=== PATIENT | male | born 1935 | race Caucasian/White ===

== ENCOUNTER 2017-07-30 06:28 | Emergency (ER) | payer OTHER ==
--- OUTSIDE RECORDS SUMMARY | 2017-07-30 06:30 | XMS REPORT | Clinical Summary ---
:[address] [facility] Hospitalist Address [address] [place] [address] Care Team Providers Name Role Phone Daniel Arguelles MD Primary Care Provider Allergies No Known Allergies Current Medications Prescription Sig. Disp. Refills Start Date End Date Status amLODIPine (NORVASC) 10 MG tablet 01/19/2016 Active calcitriol (ROCALTROL) 0.25 MCG capsule 01/19/2016 Active clopidogrel (PLAVIX) 75 mg tablet 12/20/2015 Active hydrALAZINE (APRESOLINE) 25 MG tablet 03/05/2016 Active lisinopril (PRINIVIL,ZESTRIL) 20 MG 03/05/2016 Active tablet hydrALAZINE (APRESOLINE) 100 MG tablet 02/18/2016 Active metoprolol tartrate (LOPRESSOR) 100 MG 02/20/2016 Active tablet RENVELA 800 mg tablet 02/16/2016 Active Active Problems Problem Noted Date End stage renal disease 03/21/2016 Social History Tobacco Use Types Packs/Day Years Used Date Never Smoker Sex Assigned at Date Recorded Not on file Last Filed Vital Signs Not on file Plan of Treatment Health Maintenance Due Date Last Done Comments ZOSTER VACCINE 1996 PNEUMOCOCCAL POLYSACCHARIDE VACCINE AGE 65 AND OVER 2001 PNEUMOCOCCAL-13 2001 INFLUENZA VACCINE 11/27/2016 Results Not on fileafter 07/29/2016 Insurance Payer Benefit Plan / Group Subscriber ID Type Phone Address AETNA AETNA PPO OPEN CHOICE xxxxxxxxx PPO MEDICARE MEDICARE PART A AND B xxxxxxxxxx Medicare [place], [place] [phone] [place], [place] [phone]
--- OUTSIDE RECORDS SUMMARY | 2017-07-30 06:30 | XMS REPORT ---
:1935 [facility] Address [address] [place] [address] [address]. [address] [place] [address] Care Team Providers Name Role Phone WING OVIEDO Unavailable Unavailable Problems This patient has no known problems. Allergies, Adverse Reactions, Alerts This patient has no known allergies or adverse reactions. Medications This patient has no known medications. Results Test Description Test Time Test Comments Text Results Atomic Results Result Comments TISSUE EXAM 2016-10-08 11:42:00 Surgical Pathology Report Case: [id number] Authorizing Provider: Erickson Oviedo MD Collected: 10/04/2016 0829 Ordering Location: [facility] Received: 10/04/2016 1114 PERIOPERATIVE SERVICES Pathologist: Tim Banres MD Specimen: Plaque, LEFT CAROTID ARTERY PLAQUE ARTERY, LEFT CAROTID, ATHERECTOMY:CALCIFIC ATHEROSCLEROTIC PLAQUE WITH METAPLASTIC OSSIFICATION 13797; 517[address]Cxebcio stenosisLeft carotid artery plaqueReceived in saline labeled "plaque", description "left carotid artery plaque" is a 3.5 cm in length x 1.0 cm in diameter, teresa-white to yellow-pino, cylindrical, previously incised portion of fibrous tissue. Sectioning reveals focal calcification. Crepe Maker sections are submitted in cassette A1 for decalcification. DB/ewPerformed CBC W/PLT COUNT & AUTO DIFFERENTIAL 2016-10-05 07:33:00 Test Item Value Reference Range Comments WHITE BLOOD CELL COUNT (BEAKER) (test zyqg=138) 9.4 K/ L 4.0-10.0 RED BLOOD CELL COUNT (BEAKER) (test aedg=608) 3.53 M/ L 4.20-5.80 HEMOGLOBIN (BEAKER) (test ccuh=671) 10.8 GM/DL 13.0-16.8 HEMATOCRIT (BEAKER) (test rfkb=788) 34.7 % 40.0-50.0 MEAN CORPUSCULAR VOLUME (BEAKER) (test qdvn=001) 98.4 fL 82.0-98.0 MEAN CORPUSCULAR HEMOGLOBIN (BEAKER) (test whju=993) 30.5 pg 27.0-33.0 MEAN CORPUSCULAR HEMOGLOBIN CONC (BEAKER) (test qzld=992) 31.0 GM/DL 32.0- 36.0 RED CELL DISTRIBUTION WIDTH (BEAKER) (test pfoa=328) 12.9 % 10.3-14.2 PLATELET COUNT (BEAKER) (test xqdk=943) 175 K/CU MM 150-430 MEAN PLATELET VOLUME (BEAKER) (test mbgm=319) 8.3 fL 6.5-10.5 NUCLEATED RED BLOOD CELLS (BEAKER) (test bemo=231) 0 /100 WBC 0-0 NEUTROPHILS RELATIVE PERCENT (BEAKER) (test fbbz=392) 68 % LYMPHOCYTES RELATIVE PERCENT (BEAKER) (test fjgf=611) 11 % MONOCYTES RELATIVE PERCENT (BEAKER) (test yuto=643) 10 % EOSINOPHILS RELATIVE PERCENT (BEAKER) (test oijq=738) 11 % BASOPHILS RELATIVE PERCENT (BEAKER) (test znou=655) 0 % NEUTROPHILS ABSOLUTE COUNT (BEAKER) (test afxw=218) 6.33 K/ L 1.80-8.00 LYMPHOCYTES ABSOLUTE COUNT (BEAKER) (test hcbs=991) 1.03 K/ L 1.48-4.50 MONOCYTES ABSOLUTE COUNT (BEAKER) (test yfys=801) 0.92 K/ L 0.00-1.30 EOSINOPHILS ABSOLUTE COUNT (BEAKER) (test arka=553) 1.07 K/ L 0.00-0.50 BASOPHILS ABSOLUTE COUNT (BEAKER) (test fuhr=552) 0.01 K/ L 0.00-0.20 0.00BASI METABOLIC [id number] 06:48:00 Test Item Value Reference Range Comments SODIUM (BEAKER) (test 138 meq/L 136-145 lcxb=090) POTASSIUM (BEAKER) (test 3.5 meq/L 3.5-5.1 zskg=410) CHLORIDE (BEAKER) (test 105 meq/L 98-107 vomv=849) CO2 (BEAKER) (test 21 meq/L 22-29 goxu=568) BLOOD UREA NITROGEN 39 mg/dL 7-21 (BEAKER) (test gfmv=220) CREATININE (BEAKER) (test 5.59 mg/dL 0.57-1.25 mtda=858) GLUCOSE RANDOM (BEAKER) 93 mg/dL 70-105 (test nsdl=368) CALCIUM (BEAKER) (test 8.6 mg/dL 8.4-10.2 khgl=225) EGFR (BEAKER) (test 10 mL/min/1.73 sq m ESTIMATED GFR IS NOT dusu=4972) ACCURATE CREATININE CLEARANCE IN PREDICTING GLOMERULAR FILTRATION RATE. ESTIMATED GFR IS NOT APPLICABLE FOR DIALYSIS PATIENTS. PLATELET AGGREGATION: FUNCTION [id number] 14:12:00 Test Item Value Reference Range Comments WEAK ADP RESULT(BEAKER) (test 82 % 60-91 vipa=3928) PLATELET FUNCTION SCREEN 60-100% indicates normal INTERP (BEAKER) (test platelet function lhou=6721) [id number] (BEAKER) Chuckie Scott MD (electronic (test lzkd=6813) signature) PLATELET COUNT AGG (BEAKER) 207 K/CU MM 150-430 (test jkyh=3878) HGB/HCT (H&H) - STAT [id number] 10:02:00 Test Item Value Reference Range Comments HEMOGLOBIN (BEAKER) (test ywoq=025) 11.2 g/dL 13.0-16.8 HEMATOCRIT (BEAKER) (test qnws=202) 33.0 % 40.0-50.0 GLUCOSE-STAT [id number] 10:02:00 Test Item Value Reference Range Comments GLUCOSE RANDOM (BEAKER) (test yrea=580) 120 mg/dL 70-110 CALCIUM, [id number] 10:02:00 Test Item Value Reference Range Comments CALCIUM IONIZED (BEAKER) (test qwkt=209) 1.10 mmol/L 1.12-1.27 PH, BLOOD (BEAKER) (test vmnm=9946) 7.40 POTASSIUM-STAT [id number] 10:01:00 Test Item Value Reference Range Comments POTASSIUM (BEAKER) (test mpaw=299) 3.6 meq/L 3.6-5.5 POTASSIUM-STAT [id number] 07:30:00 Test Item Value Reference Range Comments POTASSIUM (BEAKER) (test jzmp=873) 3.3 meq/L 3.6-5.5 [id number] 06:44:00 Test Item Value Reference Range Comments PARTIAL THROMBOPLASTIN TIME (BEAKER) (test 28.8 seconds 22.5-36.0 eecw=430) PROTHROMBIN TIME/[id number] 06:43:00 Test Item Value Reference Range Comments PROTIME (BEAKER) (test mlql=599) 13.4 seconds 11.7-14.7 INR (BEAKER) (test qaro=066) 1.0 <=5.9 RECOMMENDED COUMADIN/WARFARIN INR THERAPY RANGESSTANDARD DOSE: 2.0 - 3.0 Includes: PROPHYLAXIS forvenous thrombosis, systemic embolization; TREATMENT for venous thrombosis and/or pulmonary embolus.HIGH RISK: Target INR is 2.5-3.5 for patients with mechanical heart valves.BASIC METABOLIC [id number] 11:44: 00 Test Item Value Reference Range Comments SODIUM (BEAKER) (test 140 meq/L 136-145 uwaa=388) POTASSIUM (BEAKER) (test 3.6 meq/L 3.5-5.1 sozi=505) CHLORIDE (BEAKER) (test 99 meq/L 98-107 wtsv=287) CO2 (BEAKER) (test 26 meq/L 22-29 tsck=188) BLOOD UREA NITROGEN 35 mg/dL 7-21 (BEAKER) (test vgvr=986) CREATININE (BEAKER) (test 5.10 mg/dL 0.57-1.25 gqlf=355) GLUCOSE RANDOM (BEAKER) 118 mg/dL 70-105 (test eidi=611) CALCIUM (BEAKER) (test 9.4 mg/dL 8.4-10.2 qrij=021) EGFR (BEAKER) (test 11 mL/min/1.73 sq m ESTIMATED GFR IS NOT qmkg=6911) ACCURATE CREATININE CLEARANCE IN PREDICTING GLOMERULAR FILTRATION RATE. ESTIMATED GFR IS NOT APPLICABLE FOR DIALYSIS PATIENTS. PROTHROMBIN TIME/[id number] 11:23:00 Test Item Value Reference Range Comments PROTIME (BEAKER) (test yaeb=539) 13.9 seconds 11.7-14.7 INR (BEAKER) (test thli=453) 1.1 <=5.9 RECOMMENDED COUMADIN/WARFARIN INR THERAPY RANGESSTANDARD DOSE: 2.0 - 3.0 Includes: PROPHYLAXIS forvenous thrombosis, systemic embolization; TREATMENT for venous thrombosis and/or pulmonary embolus.HIGH RISK: Target INR is 2.5-3.5 for patients with mechanical heart valves.CBC W/PLT COUNT & AUTO [id number] 11:21:00 Test Item Value Reference Range Comments WHITE BLOOD CELL COUNT (BEAKER) (test resl=705) 9.2 K/ L 4.0-10.0 RED BLOOD CELL COUNT (BEAKER) (test ozcu=041) 4.08 M/ L 4.20-5.80 HEMOGLOBIN (BEAKER) (test lswu=113) 13.0 GM/DL 13.0-16.8 HEMATOCRIT (BEAKER) (test hikx=976) 39.8 % 40.0-50.0 MEAN CORPUSCULAR VOLUME (BEAKER) (test fmna=082) 97.7 fL 82.0-98.0 MEAN CORPUSCULAR HEMOGLOBIN (BEAKER) (test 31.9 pg 27.0-33.0 yboh=074) MEAN CORPUSCULAR HEMOGLOBIN CONC (BEAKER) (test 32.6 GM/DL 32.0-36.0 kmyd=586) RED CELL DISTRIBUTION WIDTH (BEAKER) (test 14.6 % 10.3-14.2 axwh=794) PLATELET COUNT (BEAKER) (test jvgk=299) 204 K/CU MM 150-430 MEAN PLATELET VOLUME (BEAKER) (test ismx=556) 7.9 fL 6.5-10.5 NUCLEATED RED BLOOD CELLS (BEAKER) (test 0 /100 WBC 0-0 nuqf=678) NEUTROPHILS RELATIVE PERCENT (BEAKER) (test 69 % vjxb=990) LYMPHOCYTES RELATIVE PERCENT (BEAKER) (test 13 % zuur=310) MONOCYTES RELATIVE PERCENT (BEAKER) (test 7 % dkeq=169) EOSINOPHILS RELATIVE PERCENT (BEAKER) (test 10 % tfzp=045) BASOPHILS RELATIVE PERCENT (BEAKER) (test 1 % wuep=675) NEUTROPHILS ABSOLUTE COUNT (BEAKER) (test 6.36 K/ L 1.80-8.00 mini=154) LYMPHOCYTES ABSOLUTE COUNT (BEAKER) (test 1.24 K/ L 1.48-4.50 paws=103) MONOCYTES ABSOLUTE COUNT (BEAKER) (test 0.65 K/ L 0.00-1.30 ssiv=812) EOSINOPHILS ABSOLUTE COUNT (BEAKER) (test 0.90 K/ L 0.00-0.50 xnpm=054) BASOPHILS ABSOLUTE COUNT (BEAKER) (test 0.07 K/ L 0.00-0.20 berc=500) 0.00
--- OUTSIDE RECORDS SUMMARY | 2017-07-30 06:30 | XMS REPORT | Clinical Summary ---
:1935 Author Organization [facility] Address [address] [place] [address] Phone Care Team Providers Name Role Phone Unavailable Primary Care Provider Unavailable Allergies Active Allergy Reactions Severity Noted Date Comments Iodine And Iodide Containing Products 10/02/2016 Current Medications Prescription Sig. Disp. Refills Start Date End Date Status clopidogrel (PLAVIX) 75 Take 75 mg by mouth Active mg tablet daily. aspirin 81 MG EC tablet Take 81 mg by mouth Active daily. hydrALAZINE (APRESOLINE) Take 25 mg by mouth Active 25 MG tablet as needed. metoprolol (LOPRESSOR) Take 100 mg by Active 100 MG tablet mouth as needed. sevelamer (RENVELA) 800 Take 1,600 mg by Active mg tablet mouth 3 (three) times daily with meals. calcium carbonate (TUMS Take 1 tablet by Active ULTRA) 400 mg (1,000 mg) mouth 3 (three) Chew times daily. cholecalciferol, vitamin Take 50,000 Units Active D3, 50,000 unit Tab by mouth once a week. Active Problems Problem Noted Date ESRD (end stage renal disease) (HCC) 10/05/2016 History of hypertension 10/05/2016 Carotid artery stenosis 10/04/2016 Encounters Date Type Specialty Care Team Description 10/04/2016 - Hospital Encounter Cardiology Erickson Oviedo Stenosis of left 10/05/2016 MD Hebert carotid artery (Primary Dx) 10/04/2016 Anesthesia Event Nuha Lr MD 10/04/2016 Procedure Pass 10/04/2016 Surgery Erickson Oviedo ENDARTERECTOMY,KRISTINE Ambrosio MD ID 10/02/2016 Hospital Encounter Erickson Oviedo MD 10/02/2016 Office Visit Cardiology Erickson Oviedo Stenosis of left MD Hebert carotid artery (Primary Dx);Renal failure 10/02/2016 Orders Only Cardiology Erickson Oviedo Stenosis of left MD Hebert carotid artery 10/02/2016 Orders Only General Internal Medicine after 07/29/2016 Social History Tobacco Use Types Packs/Day Years Used Date Current Every Day Smoker Smokeless Tobacco: Never Used Alcohol Use Drinks/Week oz/Week Comments No Sex Assigned at Date Recorded Not on file Last Filed Vital Signs Vital Sign Reading Time Taken Blood Pressure 130/48 10/05/2016 7:16 AM CDT Pulse 75 10/05/2016 7:16 AM CDT Temperature 36.5 C (97.7 F) 10/05/2016 7:16 AM CDT Respiratory Rate 20 10/05/2016 7:16 AM CDT Oxygen Saturation 96% 10/05/2016 7:16 AM CDT Inhaled Oxygen Concentration - - Weight 51.1 kg (112 lb 11.2 oz) 10/05/2016 7:16 AM CDT Height 157.5 cm (5' 2") 10/04/2016 5:40 AM CDT Body Mass Index 20.61 10/05/2016 7:16 AM CDT Plan of Treatment Health Maintenance Due Date Last Done Comments INFLUENZA VACCINE 01/27/2017 Implants Implanted Type Area Inventory Specialist Device Expiration Model / Identifier Date Serial / Lot Grft Hemshld Dbl Pepe 0.3x3.0in [id number] - [id number] Graft/P Left: GETINGE 03/28/2021 [id number] / Implanted: Qty: 1 on 10/04/2016 by Erickson Oviedo MD [facility] Arterial IND: MAQUET:CV [id number] / [id number] Procedures Procedure Name Priority Date/Time Associated Diagnosis Comments ENDARTERECTOMY,CAROTID 10/04/2016 7:30 AM CDT CAROTID STENOSIS after 07/29/2016 Results RHYTHM STRIP - SCAN (10/09/2016 9:10 AM)Only the most recent of2 resultswithin the time period is included.CBC with platelet count + automated diff (2016 4:47 AM)Only the most recent of2 resultswithin the time period is included. Component Value Ref Range WBC 9.4 4.0 - 10.0 K/L RBC 3.53 (L) 4.20 - 5.80 M/L Hemoglobin 10.8 (L) 13.0 - 16.8 GM/DL Hematocrit 34.7 (L) 40.0 - 50.0 % MCV 98.4 (H) 82.0 - 98.0 fL MCH 30.5 27.0 - 33.0 pg MCHC 31.0 (L) 32.0 - 36.0 GM/DL RDW 12.9 10.3 - 14.2 % Platelets 175 150 - 430 K/CU MM MPV 8.3 6.5 - 10.5 fL nRBC 0 0 - 0 /100 WBC % Neutros 68 % % Lymphs 11 % % Monos 10 % % Eos 11 % % Baso 0 % # Neutros 6.33 1.80 - 8.00 K/L # Lymphs 1.03 (L) 1.48 - 4.50 K/L # Monos 0.92 0.00 - 1.30 K/L # Eos 1.07 (H) 0.00 - 0.50 K/L # Baso 0.01 0.00 - 0.20 K/L Specimen Performing Laboratory Blood - Hand, Right [address] [address] Narrative 0.00 CBC with platelet count + automated diff (10/05/2016 4:47 AM)Only the most recent of2 resultswithin the time period is included. Specimen Performing Laboratory Blood Narrative The following orders were created for panel order CBC with platelet count + automated diff. Procedure Abnormality Status --------- ------ CBC with platelet count ...[[id number]]AbnormalFinal result Please view results for these tests on the individual orders. Basic Metabolic Panel (10/05/2016 4:47 AM)Only the most recent of2 resultswithin the time period is included. Component Value Ref Range Sodium 138 136 - 145 meq/L Potassium 3.5 3.5 - 5.1 meq/L Chloride 105 98 - 107 meq/L CO2 21 (L) 22 - 29 meq/L BUN 39 (H) 7 - 21 mg/dL Creatinine 5.59 (H) 0.57 - 1.25 mg/dL Glucose 93 70 - 105 mg/dL Calcium 8.6 8.4 - 10.2 mg/dL EGFR 10Comment: ESTIMATED GFR IS NOT ACCURATE mL/min/1.73 sq m CREATININE CLEARANCE IN PREDICTING GLOMERULAR FILTRATION RATE. ESTIMATED GFR IS NOT APPLICABLE FOR DIALYSIS PATIENTS. Specimen Performing Laboratory Blood - Hand, Right [address] [address] Potassium-Stat Lab (10/04/2016 9:39 AM)Only the most recent of2 resultswithin the time period is included. Component Value Ref Range Potassium 3.6 3.6 - 5.5 meq/L Specimen Performing Laboratory Blood, Arterial [address] [address] Glucose-Stat Lab (10/04/2016 9:39 AM) Component Value Ref Range Glucose 120 (H) 70 - 110 mg/dL Specimen Performing Laboratory Blood, [address] [address] HGB/HCT (H&H)-Stat Lab (10/04/2016 9:39 AM) Component Value Ref Range Hemoglobin 11.2 (L) 13.0 - 16.8 g/dL Hematocrit 33.0 (L) 40.0 - 50.0 % Specimen Performing Laboratory Blood, [address] [address] Calcium, Ionized (10/04/2016 9:39 AM) Component Value Ref Range Calcium, Ion 1.10 (L) 1.12 - 1.27 mmol/L pH, Blood 7.40 Specimen Performing Laboratory Blood [address] [address] Tissue Exam (10/04/2016 8:29 AM) Component Value Ref Range Case Report Surgical Pathology Report Case: [id number] Authorizing Provider:Erickson Oviedo MDCollected: 10/04/201629 Ordering Location: [facility] Received: 10/04/2016 1114 PERIOPERATIVE SERVICES Pathologist: Tim Barnes MD Specimen:Plaque, LEFT CAROTID ARTERY PLAQUE DIAGNOSIS ARTERY, LEFT CAROTID, ATHERECTOMY: CALCIFIC ATHEROSCLEROTIC PLAQUE WITH METAPLASTIC OSSIFICATION CPT Code(s) 10025; 70103 CLINICAL HISTORY Carotid stenosis SPECIMEN SOURCE Left carotid artery plaque GROSS DESCRIPTION Received in saline labeled "plaque", description "left carotid artery plaque" is a 3.5 cm in length x 1.0 cm in diameter, teresa-white to yellow-pino, cylindrical, previously incised portion of fibrous tissue. Sectioning reveals focal calcification. Asphalt Paving Superintendent sections are submitted in cassette A1 for decalcification. DB/ew MICROSCOPIC DESCRIPTION Performed Specimen Performing Laboratory Tissue - Plaque [address] [address] Platelet Aggregation: Function Screen (10/04/2016 6:27 AM) Component Value Ref Range Weak ADP 82 60 - 91 % Plt. Function Screen Interpretation 60-100% indicates normal platelet function Pathologist: Chuckie Scott MD (electronic signature) Platelets 207 150 - 430 K/CU MM Specimen Performing Laboratory Blood [address] [address] aPTT (10/04/2016 6:27 AM) Component Value Ref Range PTT 28.8 22.5 - 36.0 seconds Specimen Performing Laboratory Blood [address] [address] Prothrombin time/INR (10/04/2016 6:27 AM)Only the most recent of2 resultswithin the time period is included. Component Value Ref Range Protime 13.4 11.7 - 14.7 seconds INR 1.0 <=5.9 Specimen Performing Laboratory Blood [address] [address] Narrative RECOMMENDED COUMADIN/WARFARIN INR THERAPY RANGES STANDARD DOSE: 2.0 - 3.0 Includes: PROPHYLAXIS for venous thrombosis, systemic embolization; TREATMENT for venous thrombosis and/or pulmonary embolus. HIGH RISK: Target INR is 2.5-3.5 for patients with mechanical heart valves. XR chest 2 views (10/02/2016 10:25 AM) Specimen Performing Laboratory GE RIS Narrative FINAL REPORT CLINICAL HISTORY: Pre-Op carotid artery stenosis TECHNIQUE: 2 views of the chest COMPARISON: None IMPRESSION: There are no focal infiltrates or effusions. The cardiomediastinal silhouette is within normal limits for size. The osseous structures appear intact. Signed: Gretchen Johansen MD Report Verified Date/Time:10/02/2016 11:26:33 Reading Location: [facility] Radiology Reading Room Procedure Note Interface, External Ris In - 10/02/2016 11:28 AM CDT FINAL REPORT CLINICAL HISTORY: Pre-Op carotid artery stenosis TECHNIQUE: 2 views of the chest COMPARISON: None IMPRESSION: There are no focal infiltrates or effusions. The cardiomediastinal silhouette is within normal limits for size. The osseous structures appear intact. Signed: Gretchen Johansen MD Report Verified Date/Time: 10/02/2016 11:26:33 Reading Location: [facility] Radiology Reading Room Type and screen, automated (10/02/2016 10:14 AM) Component Value Ref Range ABO/RH AUTOMATED (BEAKER) A POSITIVE Ab Scrn NEGATIVE Specimen Performing Laboratory Blood [facility] [address] [address] ECG 12 lead (May substitute report if done w/in last 3 months) (10/02/2016 10: 03 AM) Specimen Performing Laboratory GE MUSE Narrative Ventricular Rate 58 BPM Atrial Rate 58 BPM P-R Interval 144 ms QRS Duration 134 ms Q-T Interval 498 ms QTC Calculation(Bazett) 488 ms P [place] 75 degrees R [place] -76 degrees T [place] 233 degrees Sinus bradycardia Left axis deviation Right bundle branch block ST depression andT wave abnormality, consider inferolateral ischemia ST elevation in aVR Prolonged QT Abnormal ECG No previous ECGs available Confirmed by MD ROSE YOCHAI ([id number]) on 10/02/2016 1:36:08 PM Procedure Note Interface, External Ris In - 10/02/2016 1:36 PM CDT Ventricular Rate 58 BPM Atrial Rate 58 BPM P-R Interval 144 ms QRS Duration 134 ms Q-T Interval 498 ms QTC Calculation(Bazett) 488 ms P [place] 75 degrees R [place] -76 degrees T [place] 233 degrees Sinus bradycardia Left axis deviation Right bundle branch block ST depression and T wave abnormality, consider inferolateral ischemia ST elevation in aVR Prolonged QT Abnormal ECG No previous ECGs available Confirmed by MD ROSE YOCHAI ([id number]) on 10/02/2016 1:36:08 PM after 07/29/2016
--- NOTE | 2017-07-30 08:16 | RAD REPORT ---
EXAM DESCRIPTION: CT - Head C Spine Mpr Wo Con - 07/30/2017 7:51 am CLINICAL HISTORY: Head and neck injury status post fall. Head and neck pain COMPARISON: [address] TECHNIQUE: Computed axial tomography of the head and cervical spine was obtained. Sagittal and coronal reconstruction was performed. All CT scans are performed using dose optimization technique as appropriate and may include automated exposure control or mA/KV adjustment according to patient size. FINDINGS: An intracranial bleed is not seen. An extra-axial fluid collection is not noted. Moderate to marked low-density areas within periventricular, deep and subcortical white matter likely represen t ischemic changes secondary to small vessel disease. Low-density within the right parietal lobe may represent an old infarction. Cerebral atrophy is present. Fluid within the visualized sinuses and mastoids is not seen A cervical fracture is not visualized. No dislocation is noted. Mild posterior subluxation of C3 on C 4 and C4 on C5 is present. This probably is chronic. Spondylosis involves mid and distal cervical spine resulting in mild central and moderate foraminal s tenosis. IMPRESSION: No acute intracranial abnormality is seen. A cervical fracture is not visualized. If the patient continues to have symptoms to suggest intracra nial /spinal cord/ligamentous pathology then MRI would be recommended
--- NOTE | 2017-07-30 08:42 | EDPHYS ---
Physician Documentation [facility] Name: Jim Rockwell Age: 81 yrs Sex: Male : 1935 Arrival Date: 07/30/2017 Time: 06:29 Bed 20 Private MD: Daniel Arguelles ED Physician Jeremy Hernandez HPI: 07/30 07:16 This 81 yrs old Male presents to ER via Ambulatory with complaints of Fall gs Injury, to head. 07:16 Details of fall: The patient fell from a supine position, out of bed. Onset: The gs symptoms/episode began/occurred acutely, at 05:30. Associated injuries: The patient sustained injury to the head, laceration, 4 cm(s). Severity of symptoms: At their worst the symptoms were moderate, in the emergency department the symptoms are unchanged. The patient has not experienced similar symptoms in the past. The patient has not recently seen a physician. Historical: - Allergies: 07:18 No Known Allergies; ph - PMHx: 07:18 ESRD; gs 07:18 ESRD; ph - PSHx: 07:18 Femoral Stent; Carotid Stent; ph - Immunization history:: Last tetanus immunization: up to date < 5 years ago. - Immunization history: Last tetanus immunization: unknown. - Social history:: The patient lives with spouse, at home, Smoking status: Patient/guardian denies using tobacco. ROS: 07:18 Cardiovascular: Negative for chest pain. gs 07:18 Cardiovascular: Negative for palpitations. 07:18 Respiratory: Negative for shortness of breath. 07:18 All other systems are negative. Exam: 07:18 Eyes: Pupils equal round and reactive to light, extra-ocular motions intact. Lids and gs lashes normal. Conjunctiva and sclera are non-icteric and not injected. Cornea within normal limits. Periorbital areas with no swelling, redness, or edema. ENT: Nares patent. No nasal discharge, no septal abnormalities noted. Tympanic membranes are normal and external auditory canals are clear. Oropharynx with no redness, swelling, or masses, exudates, or evidence of obstruction, uvula midline. Mucous membranes moist. Neck: Trachea midline, no thyromegaly or masses palpated, and no cervical lymphadenopathy. Supple, full range of motion without nuchal rigidity, or vertebral point tenderness. No Meningismus. Chest/axilla: Normal chest wall appearance and motion. Nontender with no deformity. No lesions are appreciated. Cardiovascular: Regular rate and rhythm with a normal S1 and S2. No gallops, murmurs, or rubs. Normal PMI, no JVD. No pulse deficits. Respiratory: Lungs have equal breath sounds bilaterally, clear to auscultation and percussion. No rales, rhonchi or wheezes noted. No increased work of breathing, no retractions or nasal flaring. Abdomen/GI: Soft, non-tender, with normal bowel sounds. No distension or tympany. No guarding or rebound. No evidence of tenderness throughout. Back: No spinal tenderness. No costovertebral tenderness. Full range of motion. Skin: Warm, dry with normal turgor. Normal color with no rashes, no lesions, and no evidence of cellulitis. MS/ Extremity: Pulses equal, no cyanosis. Neurovascular intact. Full, normal range of motion. Neuro: Awake and alert, GCS 15, oriented to person, place, time, and situation. Cranial nerves II-XII grossly intact. Motor strength 5/5 in all extremities. Sensory grossly intact. Cerebellar exam normal. Normal gait. 07:18 Constitutional: The patient appears alert, awake. 07:18 Head/face: Noted is a laceration(s), that is superficial, 4 cm(s), of the top of head. Vital Signs: 06:35 BP 187 / 44; Pulse 66; Resp 18; Temp 98; Pulse Ox 97% ; Weight 53.52 kg; Height 5 ft. 2 bp in. (157.48 cm); 07:19 BP 183 / 54; Pulse 62; Resp 18; Pulse Ox 98% on R/A; ph 08:30 BP 186 / 52; Pulse 64; Resp 16; Pulse Ox 99% on R/A; ph 09:15 BP 187 / 47; Pulse 62; Resp 18; Temp 97.8(TE); Pulse Ox 98% on R/A; ph 06:35 Body Mass Index 21.58 (53.52 kg, 157.48 cm) bp Yogesh Coma Score: 06:44 Eye Response: spontaneous(4). Verbal Response: oriented(5). Motor Response: obeys bp commands(6). Total: 15. 07:19 Eye Response: spontaneous(4). Verbal Response: oriented(5). Motor Response: obeys ph commands(6). Total: 15. 08:30 Eye Response: spontaneous(4). Verbal Response: oriented(5). Motor Response: obeys ph commands(6). Total: 15. 09:15 Eye Response: spontaneous(4). Verbal Response: oriented(5). Motor Response: obeys ph commands(6). Total: 15. Trauma Score (Adult): 06:44 Eye Response: spontaneous(1); Verbal Response: oriented(1); Motor Response: obeys bp commands(2); Systolic BP: > 89 mm Hg(4); Respiratory Rate: 10 to 29 per min(4); [place] Score: 15; Trauma Score: 12 07:19 Eye Response: spontaneous(1); Verbal Response: oriented(1); Motor Response: obeys ph commands(2); Systolic BP: > 89 mm Hg(4); Respiratory Rate: 10 to 29 per min(4); [place] Score: 15; Trauma Score: 12 08:30 Eye Response: spontaneous(1); Verbal Response: oriented(1); Motor Response: obeys ph commands(2); Systolic BP: > 89 mm Hg(4); Respiratory Rate: 10 to 29 per min(4); Yogesh Score: 15; Trauma Score: 12 09:15 Eye Response: spontaneous(1); Verbal Response: oriented(1); Motor Response: obeys ph commands(2); Systolic BP: > 89 mm Hg(4); Respiratory Rate: 10 to 29 per min(4); [place] Score: 15; Trauma Score: 12 MDM: 07:16 Patient medically screened. 07:18 Differential diagnosis: abrasion, closed head injury, laceration. Data reviewed: vital gs signs, nurses notes. Response to treatment: the patient's symptoms have markedly improved after treatment. 08:41 ED course: laceration superficial no closure needed. 07/30 07:30 Order name: Head C Spine Mpr Wo Con; Complete Time: 08:16 EDMS Administered Medications: No medications were administered Disposition: 07/30/17 08:42 Discharged to Home. Impression: Laceration without foreign body of other part of head. - Condition is Stable. - Discharge Instructions: Laceration Care, Adult, [id number]. - Medication Reconciliation Form, Thank You Letter, Antibiotic Education, Prescription Opioid Use form. - Follow up: Private Physician; When: 2 - 3 days; Reason: Re-evaluation by your physician. Signatures: Dispatcher [employer] Jocy Greenberg, RN RN Jeremy Hernandez MD MD Alfie Dos Santos RN RN bp Corrections: (The following items were deleted from the chart) 07:30 07:15 C Spine Wo Con+CT.RAD.BRZ ordered. EDMS EDMS 07:31 06:53 Head Brain Wo Cont+CT.RAD.BRZ ordered. EDMS EDMS
--- NOTE | 2017-07-30 08:42 | ER ---
Nurse's Notes [facility] Name: Jim Rockwell Age: 81 yrs Sex: Male : 1935 Arrival Date: 07/30/2017 Time: 06:29 Bed 20 Private MD: Daniel Arguelles Diagnosis: Laceration without foreign body of other part of head Presentation: 07/30 06:35 Presenting complaint: states: HE FELL OUT OF BED THIS MORNING. Care prior to bp arrival: None. Mechanism of Injury: Fall out of bed. Trauma event details: Injury occurred in the [facility], Injury occurred: at home. Injury occurred: July 30, 2017 Injury occurred at: 05:00. 06:35 Acuity: BALDEMAR 3 bp 06:35 Method Of Arrival: Ambulatory bp 07:18 Transition of care: patient was not received from another setting of care. Onset of ph symptoms was July 30, 2017. Trauma Activation: Not Applicable Physician: ED Physician; Name: ; Notified At: ; Arrived At: Physician: General Surgeon; Name: ; Notified At: ; Arrived At: Physician: Radiology; Name: ; Notified At: ; Arrived At: Physician: Respiratory; Name: ; Notified At: ; Arrived At: Physician: Lab; Name: ; Notified At: ; Arrived At: Historical: - Allergies: 07:18 No Known Allergies; ph - PMHx: 07:18 ESRD; gs 07:18 ESRD; ph - PSHx: 07:18 Femoral Stent; Carotid Stent; ph - Immunization history:: Last tetanus immunization: up to date < 5 years ago. - Immunization history: Last tetanus immunization: unknown. - Social history:: The patient lives with spouse, at home, Smoking status: Patient/guardian denies using tobacco. Screenin:35 Abuse screen: Denies threats or abuse. Denies injuries from another. Nutritional bp screening: No deficits noted. Tuberculosis screening: No symptoms or risk factors identified. Fall risk At risk due to immobility, prior history of falls, Intervention for positive screen: ED Physician notified, instructed to call for assist when getting up, side rails up. 07:19 Fall Risk Fall in past 12 months (25 points). No secondary diagnosis (0 pts). No IV (0 ph pts). Ambulatory Aid- None/Bed Rest/Nurse Assist (0 pts). Gait- Normal/Bed Rest/Wheelchair (0 pts) Mental Status- Oriented to own ability (0 pts). Total Pantoja Fall Scale indicates Low Risk Score (25-44 pts). Fall prevention measures have been instituted. Side Rails Up X 2 Family Present and informed to notify staff if they need to leave bedside As available Patient and Family Educated on Fall Prevention Program and strategies. Primary Survey: 06:44 A: Airway: patent. Breathing/Chest: Respiratory pattern: regular, Respiratory effort: bp spontaneous, unlabored. Circulation: Skin color: pink, Skin temperature: warm, dry. Disability Alert. 09:10 Reassessment Breathing/Chest Respiratory pattern Regular Respiratory effort Spontaneous ph Unlabored Disability Alert. Assessment: 06:35 General: Appears in no apparent distress. comfortable, Behavior is calm, cooperative, bp appropriate for age. Pain: Complains of pain in head. Neuro: Level of Consciousness is awake, alert, obeys commands, Oriented to person, place, time, situation, Appropriate for age. EENT: No deficits noted. Cardiovascular: No deficits noted. Respiratory: Airway is patent Respiratory effort is even, unlabored, Respiratory pattern is regular, symmetrical. GI: No deficits noted. : No signs and/or symptoms were reported regarding the genitourinary system. Derm: No deficits noted. Musculoskeletal: Circulation, motion, and sensation intact. Range of motion: intact in all extremities. Injury Description: Laceration sustained to forehead. 07:14 Reassessment: Patient appears in no apparent distress at this time. Patient and/or ph family updated on plan of care and expected duration. Pain level reassessed. Patient is alert, oriented x 3, equal unlabored respirations, skin warm/dry/pink. General: Appears in no apparent distress. comfortable, well groomed, Behavior is calm, cooperative, appropriate for age. Pain: Pain: Complains of pain in head. 07:15 Neuro: Level of Consciousness is awake, alert, obeys commands, Oriented to person, ph place, time, Denies blurred vision dizziness, headache. Cardiovascular: Capillary refill < 3 seconds in bilateral fingers Patient's skin is warm and dry. Respiratory: Airway is patent Respiratory effort is even, unlabored, Respiratory pattern is regular, symmetrical. GI: No signs and/or symptoms were reported involving the gastrointestinal system. : No signs and/or symptoms were reported regarding the genitourinary system. Derm: Skin is fragile, is thin, Skin is pink, warm \T\ dry. Musculoskeletal: Circulation, motion, and sensation intact. Range of motion: intact in all extremities. Injury Description: Laceration sustained to top of head. 08:30 Reassessment: Patient appears in no apparent distress at this time. Patient and/or ph family updated on plan of care and expected duration. Pain level reassessed. Patient is alert, oriented x 3, equal unlabored respirations, skin warm/dry/pink. Pt resting quietly, awaiting CT results, at bedside, VSS, will continue to monitor. 09:14 Reassessment: Patient appears in no apparent distress at this time. Patient and/or ph family updated on plan of care and expected duration. Pain level reassessed. Patient is alert, oriented x 3, equal unlabored respirations, skin warm/dry/pink. Laceration cleaned and dressed, pt discharged home with . Vital Signs: 06:35 BP 187 / 44; Pulse 66; Resp 18; Temp 98; Pulse Ox 97% ; Weight 53.52 kg; Height 5 ft. 2 bp in. (157.48 cm); 07:19 BP 183 / 54; Pulse 62; Resp 18; Pulse Ox 98% on R/A; ph 08:30 BP 186 / 52; Pulse 64; Resp 16; Pulse Ox 99% on R/A; ph 09:15 BP 187 / 47; Pulse 62; Resp 18; Temp 97.8(TE); Pulse Ox 98% on R/A; ph 06:35 Body Mass Index 21.58 (53.52 kg, 157.48 cm) bp Yogesh Coma Score: 06:44 Eye Response: spontaneous(4). Verbal Response: oriented(5). Motor Response: obeys bp commands(6). Total: 15. 07:19 Eye Response: spontaneous(4). Verbal Response: oriented(5). Motor Response: obeys ph commands(6). Total: 15. 08:30 Eye Response: spontaneous(4). Verbal Response: oriented(5). Motor Response: obeys ph commands(6). Total: 15. 09:15 Eye Response: spontaneous(4). Verbal Response: oriented(5). Motor Response: obeys ph commands(6). Total: 15. Trauma Score (Adult): 06:44 Eye Response: spontaneous(1); Verbal Response: oriented(1); Motor Response: obeys bp commands(2); Systolic BP: > 89 mm Hg(4); Respiratory Rate: 10 to 29 per min(4); [place] Score: 15; Trauma Score: 12 07:19 Eye Response: spontaneous(1); Verbal Response: oriented(1); Motor Response: obeys ph commands(2); Systolic BP: > 89 mm Hg(4); Respiratory Rate: 10 to 29 per min(4); Yogesh Score: 15; Trauma Score: 12 08:30 Eye Response: spontaneous(1); Verbal Response: oriented(1); Motor Response: obeys ph commands(2); Systolic BP: > 89 mm Hg(4); Respiratory Rate: 10 to 29 per min(4); Yog[place] Score: 15; Trauma Score: 12 09:15 Eye Response: spontaneous(1); Verbal Response: oriented(1); Motor Response: obeys ph commands(2); Systolic BP: > 89 mm Hg(4); Respiratory Rate: 10 to 29 per min(4); Yogesh Score: 15; Trauma Score: 12 ED Course: 06:29 Patient arrived in ED. es 06:29 Daniel Arguelles MD is Private Physician. es 06:35 Patient has correct armband on for positive identification. Bed in low position. Call bp light in reach. Side rails up X2. Adult w/ patient. 06:41 Alfie Dos Santos, BRIAN is Primary Nurse. bp 06:42 Triage completed. bp 07:07 Jeremy Hernandez MD is Attending Physician. gs 07:17 Patient maintains SpO2 saturation greater than 95% on room air. Thermoregulation: warm ph blanket given to patient. 07:19 Arm band placed on. ph 07:50 CT completed. Patient tolerated procedure well. Patient moved to CT via stretcher. jg1 Patient moved back from CT. 07:51 Head C Spine Mpr Wo Con In Process Unspecified. EDMS 09:10 Wound care: to abrasion, located on top of head was cleaned with Hibiclens, irrigated ph with normal saline, dressed with Neosporin, band aid, Patient tolerated well. 09:16 No provider procedures requiring assistance completed. Patient did not have IV access ph during this emergency room visit. Administered Medications: No medications were administered Intake: 06:44 PO: 0ml; Total: 0ml. bp 09:15 PO: 0ml; Total: 0ml. ph Output: 06:44 Urine: 0ml; Total: 0ml. bp 09:15 Urine: 0ml; Total: 0ml. ph Outcome: 08:42 Discharge ordered by . 09:17 Discharged to home via wheelchair, with significant other. ph 09:17 Condition: good 09:17 Discharge instructions given to patient, significant other, Instructed on discharge instructions, follow up and referral plans. wound care, Demonstrated understanding of instructions, follow-up care, wound care. 09:17 Patient's length of stay was not longer than 2 hours. ph 09:17 Patient left the ED. ph Signatures: Dispatcher [employer] Hannah Tony Jessica jg1 Hall, Patricia, RN RN ph Jeremy Hernandez MD MD gs Peltier, Brian, RN RN bp Corrections: (The following items were deleted from the chart) 07:16 07:14 Pain: ph ph
[2017-07-30 09:25] VITALS: BP 187/47; TEMP 97.8; O2SAT 98
== END 2017-07-30 09:17 | disposition home or self-care (01) ==
LOC: ER 06:28
DX: S01.81XA Laceration without foreign body of other part of head, initial encounter (principal); W06.XXXA Fall from bed, initial encounter; Y92.003 Bedroom of unspecified non-institutional (private) residence as the place of occurrence of the external cause; N18.6 End stage renal disease; Z95.818 Presence of other cardiac implants and grafts
CPT/HCPCS: 70450; 72125; 99285

== ENCOUNTER 2017-08-08 03:40 | Inpatient (IN) | payer OTHER ==
--- OUTSIDE RECORDS SUMMARY | 2017-08-08 03:42 | XMS REPORT | Clinical Summary ---
:1935 Author Organization [facility] Address [address] [place] [address] Phone Care Team Providers Name Role Phone [...] 10/02/2016 Orders Only General Internal Medicine after 08/07/2016 Social History Tobacco Use Types Packs/Day Years [...] Due Date Last Done Comments INFLUENZA VACCINE 01/27/2018 Implants Implanted Type Area Truss Puller Helper Device Expiration Model / Identifier Date Serial / Lot Grft Hemshld Dbl Pepe 0.3x3.0in [id number] - [id number] Graft/P Left: GETINGE 03/28/2021 [id number] / Implanted: Qty: 1 on 10/04/2016 by Erickson Oviedo MD [facility] Arterial IND: MAQUET:CV [id number] / [id number] Procedures Procedure Name Priority Date/Time Associated Diagnosis Comments ENDARTERECTOMY,CAROTID 10/04/2016 7:30 AM CDT CAROTID STENOSIS after 08/07/2016 Results RHYTHM STRIP - SCAN (10/09/2016 9:10 [...] Specimen Performing Laboratory Blood - Hand, Right [address] [address] Narrative 0.00 CBC with platelet count + automated diff (10/05/2016 4:47 AM)Only the most recent of2 resultswithin the time period is included. Specimen Performing Laboratory Blood Narrative The following orders were created for panel order CBC with platelet count + automated diff. Procedure Abnormality Status --------- ------ CBC with platelet count ...[[id number]]AbnormalFinal result Please view results for these tests [...] Specimen Performing Laboratory Blood - Hand, Right [address] [address] Potassium-Stat Lab (10/04/2016 9:39 AM)Only the most recent of2 resultswithin the time period is included. Component Value Ref Range Potassium 3.6 3.6 - 5.5 meq/L Specimen Performing Laboratory Blood, Arterial [address] [address] Glucose-Stat Lab (10/04/2016 9:39 AM) Component Value Ref Range Glucose 120 (H) 70 - 110 mg/dL Specimen Performing Laboratory Blood, [address] [address] HGB/HCT (H&H)-Stat Lab (10/04/2016 9:39 AM) Component Value Ref Range Hemoglobin 11.2 (L) 13.0 - 16.8 g/dL Hematocrit 33.0 (L) 40.0 - 50.0 % Specimen Performing Laboratory Blood, [address] [address] Calcium, Ionized (10/04/2016 9:39 AM) Component Value Ref Range Calcium, Ion 1.10 (L) 1.12 - 1.27 mmol/L pH, Blood 7.40 Specimen Performing Laboratory Blood [address] [address] Tissue Exam (10/04/2016 8:29 AM) Component Value Ref Range Case Report Surgical Pathology Report Case: [id number] Authorizing Provider:Erickson Oviedo MDCollected: 10/04/201629 Ordering Location: [facility] Received: 10/04/2016 1114 PERIOPERATIVE SERVICES Pathologist: Tim Barnes MD Specimen:Plaque, LEFT CAROTID ARTERY PLAQUE DIAGNOSIS ARTERY, LEFT CAROTID, ATHERECTOMY: 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 Sectioning reveals focal calcification. Wildlife Manager sections are submitted in cassette A1 for decalcification. DB/ew MICROSCOPIC DESCRIPTION Performed Specimen Performing Laboratory Tissue - Plaque [address] [address] Platelet Aggregation: Function Screen (10/04/2016 6:27 AM) Component Value Ref Range Weak ADP 82 60 - 91 % Plt. Function Screen Interpretation 60-100% indicates normal platelet function Pathologist: Chuckie Scott MD (electronic signature) Platelets 207 150 - 430 K/CU MM Specimen Performing Laboratory Blood [address] [address] aPTT (10/04/2016 6:27 AM) Component Value Ref Range PTT 28.8 22.5 - 36.0 seconds Specimen Performing Laboratory Blood [address] [address] Prothrombin time/INR (10/04/2016 6:27 AM)Only the most recent of2 resultswithin the time period is included. Component Value Ref Range Protime 13.4 11.7 - 14.7 seconds INR 1.0 <=5.9 Specimen Performing Laboratory Blood [address] [address] Narrative RECOMMENDED COUMADIN/WARFARIN INR THERAPY RANGES STANDARD [...] MD Report Verified Date/Time:10/02/2016 11:26:33 Reading Location: [facility] Radiology Reading Room Procedure Note Interface, External Ris In - 10/02/2016 11:28 AM CDT FINAL REPORT CLINICAL HISTORY: Pre-Op carotid artery stenosis TECHNIQUE: 2 views of the chest COMPARISON: None IMPRESSION: There are no focal infiltrates or effusions. The cardiomediastinal silhouette is within normal limits for size. The osseous structures appear intact. Signed: Gretchen Johansen MD Report Verified Date/Time: 10/02/2016 11:26:33 Reading Location: [facility] Radiology Reading Room Type and screen, automated (10/02/2016 10:14 AM) Component Value Ref Range ABO/RH AUTOMATED (BEAKER) A POSITIVE Ab Scrn NEGATIVE Specimen Performing Laboratory Blood [facility] [address] [address] ECG 12 lead (May substitute report if done w/in last 3 months) (10/02/2016 10: 03 AM) Specimen Performing Laboratory GE MUSE Narrative Ventricular Rate 58 BPM Atrial Rate 58 BPM P-R Interval 144 ms QRS Duration 134 ms Q-T Interval 498 ms QTC Calculation(Bazett) 488 ms P [place] 75 degrees R [place] -76 degrees T [place] 233 degrees Sinus bradycardia Left axis deviation [...] 498 ms QTC Calculation(Bazett) 488 ms P [place] 75 degrees R [place] -76 degrees T [place] 233 degrees Sinus bradycardia Left axis deviation Right bundle branch block ST depression and T wave abnormality, consider inferolateral ischemia ST elevation in aVR Prolonged QT Abnormal ECG No previous ECGs available Confirmed by MD ROSE YOCHAI ([id number]) on 10/02/2016 1:36:08 PM after 08/07/2016
--- OUTSIDE RECORDS SUMMARY | 2017-08-08 03:42 | XMS REPORT | Clinical Summary ---
:1935 Author Organization [facility] Address [address] [place] [id number] Care Team Providers Name Role Phone Daniel [...] AND OVER 2001 PNEUMOCOCCAL-13 2001 INFLUENZA VACCINE 11/27/2017 Results Not on fileafter 08/07/2016 Insurance Payer Benefit Plan / Group Subscriber ID Type Phone Address AETNA AETNA PPO OPEN CHOICE xxxxxxxxx PPO MEDICARE MEDICARE PART A AND B xxxxxxxxxx Medicare [place], [place] [phone] [place], [place] [id number]
--- OUTSIDE RECORDS SUMMARY | 2017-08-08 03:42 | XMS REPORT ---
:1935 [facility] Address [address] [place] [address] [address]. [address] La [address] [place] [address] Care Team Providers Name Role Phone WING OVIEDO Unavailable Unavailable Problems This patient has no known problems. Allergies, Adverse Reactions, Alerts This patient has no known allergies or adverse reactions. Medications This patient has no known medications. Results Test Description Test Time Test Comments Text Results Atomic Results Result Comments TISSUE EXAM 2016-10-08 11:42:00 Surgical Pathology Report Case: [id number] Authorizing Provider: Erickson Oviedo MD Collected: 10/04/2016 0829 Order[address] Location: [facility] Received: 10/04/2016 1114 PERIOPERATIVE SERVICES Pathologist: Tim Barnes MD Specimen: Plaque, LEFT CAROTID ARTERY PLAQUE ARTERY, LEFT CAROTID, ATHERECTOMY:CALCIFIC ATHEROSCLEROTIC PLAQUE WITH METAPLASTIC OSSIFICATION [id number]; [id number] stenosisLeft carotid artery plaqueReceived in saline labeled "plaque", description "left carotid artery plaque" is a 3.5 cm in length x 1.0 cm in diameter, teresa-white to yellow-pino, cylindrical, previously incised portion of fibrous tissue. Sectioning reveals focal calcification. Plug Sorter sections are submitted in cassette A1 for decalcification. DB/ewPerformed CBC W/PLT COUNT & AUTO DIFFERENTIAL 2016-10-05 07:33:00 Test Item Value Reference Range Comments WHITE BLOOD CELL COUNT (BEAKER) (test stsh=736) 9.4 K/ L 4.0-10.0 RED BLOOD CELL COUNT (BEAKER) (test pgue=751) 3.53 M/ L 4.20-5.80 HEMOGLOBIN (BEAKER) (test uurq=712) 10.8 GM/DL 13.0-16.8 HEMATOCRIT (BEAKER) (test hues=035) 34.7 % 40.0-50.0 MEAN CORPUSCULAR VOLUME (BEAKER) (test glgf=096) 98.4 fL 82.0-98.0 MEAN CORPUSCULAR HEMOGLOBIN (BEAKER) (test hwcg=912) 30.5 pg 27.0-33.0 MEAN CORPUSCULAR HEMOGLOBIN CONC (BEAKER) (test lxky=068) 31.0 GM/DL 32.0- 36.0 RED CELL DISTRIBUTION WIDTH (BEAKER) (test qzmm=535) 12.9 % 10.3-14.2 PLATELET COUNT (BEAKER) (test dchz=887) 175 K/CU MM 150-430 MEAN PLATELET VOLUME (BEAKER) (test syjg=608) 8.3 fL 6.5-10.5 NUCLEATED RED BLOOD CELLS (BEAKER) (test hcml=856) 0 /100 WBC 0-0 NEUTROPHILS RELATIVE PERCENT (BEAKER) (test ssal=240) 68 % LYMPHOCYTES RELATIVE PERCENT (BEAKER) (test fafs=026) 11 % MONOCYTES RELATIVE PERCENT (BEAKER) (test twyz=646) 10 % EOSINOPHILS RELATIVE PERCENT (BEAKER) (test vdcv=658) 11 % BASOPHILS RELATIVE PERCENT (BEAKER) (test rbhs=351) 0 % NEUTROPHILS ABSOLUTE COUNT (BEAKER) (test zirc=208) 6.33 K/ L 1.80-8.00 LYMPHOCYTES ABSOLUTE COUNT (BEAKER) (test higa=015) 1.03 K/ L 1.48-4.50 MONOCYTES ABSOLUTE COUNT (BEAKER) (test edjy=022) 0.92 K/ L 0.00-1.30 EOSINOPHILS ABSOLUTE COUNT (BEAKER) (test aiyc=555) 1.07 K/ L 0.00-0.50 BASOPHILS ABSOLUTE COUNT (BEAKER) (test oeje=433) 0.01 K/ L 0.00-0.20 0.00BASI METABOLIC [id number] 06:48:00 Test Item Value Reference Range Comments SODIUM (BEAKER) (test 138 meq/L 136-145 mbka=336) POTASSIUM (BEAKER) (test 3.5 meq/L 3.5-5.1 xyhe=755) CHLORIDE (BEAKER) (test 105 meq/L 98-107 isad=349) CO2 (BEAKER) (test 21 meq/L 22-29 bong=480) BLOOD UREA NITROGEN 39 mg/dL 7-21 (BEAKER) (test ufiy=838) CREATININE (BEAKER) (test 5.59 mg/dL 0.57-1.25 ntmr=046) GLUCOSE RANDOM (BEAKER) 93 mg/dL 70-105 (test xbvn=746) CALCIUM (BEAKER) (test 8.6 mg/dL 8.4-10.2 adhg=323) EGFR (BEAKER) (test 10 mL/min/1.73 sq m ESTIMATED GFR IS NOT lors=4678) ACCURATE CREATININE CLEARANCE IN PREDICTING GLOMERULAR FILTRATION RATE. ESTIMATED GFR IS NOT APPLICABLE FOR DIALYSIS PATIENTS. PLATELET AGGREGATION: FUNCTION [id number] 14:12:00 Test Item Value Reference Range Comments WEAK ADP RESULT(BEAKER) (test 82 % 60-91 hnvt=8545) PLATELET FUNCTION SCREEN 60-100% indicates normal INTERP (BEAKER) (test platelet function ugan=8819) [id number] (BEAKER) Chuckie Scott MD (electronic (test tqzr=7874) signature) PLATELET COUNT AGG (BEAKER) 207 K/CU MM 150-430 (test grxc=0337) HGB/HCT (H&H) - STAT [id number] 10:02:00 Test Item Value Reference Range Comments HEMOGLOBIN (BEAKER) (test ohkt=592) 11.2 g/dL 13.0-16.8 HEMATOCRIT (BEAKER) (test zcri=209) 33.0 % 40.0-50.0 GLUCOSE-STAT [id number] 10:02:00 Test Item Value Reference Range Comments GLUCOSE RANDOM (BEAKER) (test mlhx=220) 120 mg/dL 70-110 CALCIUM, [id number] 10:02:00 Test Item Value Reference Range Comments CALCIUM IONIZED (BEAKER) (test frzy=383) 1.10 mmol/L 1.12-1.27 PH, BLOOD (BEAKER) (test hwcu=1574) 7.40 POTASSIUM-STAT [id number] 10:01:00 Test Item Value Reference Range Comments POTASSIUM (BEAKER) (test vmxh=457) 3.6 meq/L 3.6-5.5 POTASSIUM-STAT [id number] 07:30:00 Test Item Value Reference Range Comments POTASSIUM (BEAKER) (test fwfi=781) 3.3 meq/L 3.6-5.5 [id number] 06:44:00 Test Item Value Reference Range Comments PARTIAL THROMBOPLASTIN TIME (BEAKER) (test 28.8 seconds 22.5-36.0 xetq=902) PROTHROMBIN [id number] 06:43:00 Test Item Value Reference Range Comments PROTIME (BEAKER) (test bcjg=757) 13.4 seconds 11.7-14.7 INR (BEAKER) (test tpef=351) 1.0 <=5.9 RECOMMENDED COUMADIN/WARFARIN INR THERAPY RANGESSTANDARD DOSE: 2.0 - 3.0 Includes: PROPHYLAXIS forvenous thrombosis, systemic embolization; TREATMENT for venous thrombosis and/or pulmonary embolus.HIGH RISK: Target INR is 2.5-3.5 for patients with mechanical heart valves.BASIC METABOLIC [id number] 11:44: 00 Test Item Value Reference Range Comments SODIUM (BEAKER) (test 140 meq/L 136-145 yoxk=823) POTASSIUM (BEAKER) (test 3.6 meq/L 3.5-5.1 rlqg=851) CHLORIDE (BEAKER) (test 99 meq/L 98-107 bvjs=231) CO2 (BEAKER) (test 26 meq/L 22-29 ramj=662) BLOOD UREA NITROGEN 35 mg/dL 7-21 (BEAKER) (test rdga=096) CREATININE (BEAKER) (test 5.10 mg/dL 0.57-1.25 eimc=921) GLUCOSE RANDOM (BEAKER) 118 mg/dL 70-105 (test wcfq=115) CALCIUM (BEAKER) (test 9.4 mg/dL 8.4-10.2 jvkb=364) EGFR (BEAKER) (test 11 mL/min/1.73 sq m ESTIMATED GFR IS NOT sivn=3498) ACCURATE CREATININE CLEARANCE IN PREDICTING GLOMERULAR FILTRATION RATE. ESTIMATED GFR IS NOT APPLICABLE FOR DIALYSIS PATIENTS. PROTHROMBIN [id number] 11:23:00 Test Item Value Reference Range Comments PROTIME (BEAKER) (test hrmf=502) 13.9 seconds 11.7-14.7 INR (BEAKER) (test sfkp=670) 1.1 <=5.9 RECOMMENDED COUMADIN/WARFARIN INR THERAPY RANGESSTANDARD DOSE: 2.0 - 3.0 Includes: PROPHYLAXIS forvenous thrombosis, systemic embolization; TREATMENT for venous thrombosis and/or pulmonary embolus.HIGH RISK: Target INR is 2.5-3.5 for patients with mechanical heart valves.CBC W/PLT COUNT & AUTO [id number] 11:21:00 Test Item Value Reference Range Comments WHITE BLOOD CELL COUNT (BEAKER) (test ouut=356) 9.2 K/ L 4.0-10.0 RED BLOOD CELL COUNT (BEAKER) (test ncno=548) 4.08 M/ L 4.20-5.80 HEMOGLOBIN (BEAKER) (test pdas=710) 13.0 GM/DL 13.0-16.8 HEMATOCRIT (BEAKER) (test cbnb=867) 39.8 % 40.0-50.0 MEAN CORPUSCULAR VOLUME (BEAKER) (test cebv=108) 97.7 fL 82.0-98.0 MEAN CORPUSCULAR HEMOGLOBIN (BEAKER) (test 31.9 pg 27.0-33.0 grhe=168) MEAN CORPUSCULAR HEMOGLOBIN CONC (BEAKER) (test 32.6 GM/DL 32.0-36.0 dspg=385) RED CELL DISTRIBUTION WIDTH (BEAKER) (test 14.6 % 10.3-14.2 bnbs=793) PLATELET COUNT (BEAKER) (test pqzh=691) 204 K/CU MM 150-430 MEAN PLATELET VOLUME (BEAKER) (test aukd=920) 7.9 fL 6.5-10.5 NUCLEATED RED BLOOD CELLS (BEAKER) (test 0 /100 WBC 0-0 cyop=256) NEUTROPHILS RELATIVE PERCENT (BEAKER) (test 69 % owcb=246) LYMPHOCYTES RELATIVE PERCENT (BEAKER) (test 13 % qyry=415) MONOCYTES RELATIVE PERCENT (BEAKER) (test 7 % lodd=213) EOSINOPHILS RELATIVE PERCENT (BEAKER) (test 10 % wgya=371) BASOPHILS RELATIVE PERCENT (BEAKER) (test 1 % jrsw=315) NEUTROPHILS ABSOLUTE COUNT (BEAKER) (test 6.36 K/ L 1.80-8.00 vxyj=313) LYMPHOCYTES ABSOLUTE COUNT (BEAKER) (test 1.24 K/ L 1.48-4.50 hisz=394) MONOCYTES ABSOLUTE COUNT (BEAKER) (test 0.65 K/ L 0.00-1.30 ulom=796) EOSINOPHILS ABSOLUTE COUNT (BEAKER) (test 0.90 K/ L 0.00-0.50 wsch=437) BASOPHILS ABSOLUTE COUNT (BEAKER) (test 0.07 K/ L 0.00-0.20 sqny=619) 0.00
--- NOTE | 2017-08-08 04:25 | EDPHYS ---
Physician Documentation [facility] Name: Jim Rockwell Age: 81 yrs Sex: Male : 1935 Arrival Date: 08/08/2017 Time: 03:43 Bed 7 Private MD: ED Physician Jian Allison HPI: 08/08 04:19 This 81 yrs old Male presents to ER via EMS with complaints of sob hx of chf kyle and copd. 04:19 The patient has shortness of breath at rest. Onset: The symptoms/episode began/occurred kyle 2 day(s) ago. Duration: The symptoms are continuous, and are steadily getting worse. The patient's shortness of breath has no apparent modifying factors. Associated signs and symptoms: The patient has no apparent associated signs or symptoms. Severity of symptoms: At their worst the symptoms were mild in the emergency department the symptoms are unchanged. The patient or guardian reports cough, difficulty breathing. Severity of symptoms: At their worst the symptoms were mild, moderate, in the emergency department the symptoms are unchanged. Historical: - Allergies: 04:00 No Known Allergies; bs1 - Home Meds: 04:00 amlodipine oral [Active]; Plavix Oral [Active]; Ferrous Sulfate Oral [Active]; losartan bs1 oral oral [Active]; Metoprolol Tartrate Oral [Active]; - PMHx: 04:00 ESRD; htn; CVA; CHF; COPD; bs1 - PSHx: 04:00 Unable to obtain; bs1 - Immunization history:: Adult Immunizations up to date. - Social history:: Smoking status: Patient uses tobacco products, pipe, PRN. - Family history:: not pertinent. ROS: 04:19 Constitutional: Negative for fever, chills, and weight loss, Eyes: Negative for injury, kyle pain, redness, and discharge, ENT: Negative for injury, pain, and discharge, Neck: Negative for injury, pain, and swelling, Cardiovascular: Negative for chest pain, palpitations, and edema, Abdomen/GI: Negative for abdominal pain, nausea, vomiting, diarrhea, and constipation, Back: Negative for injury and pain, : Negative for injury, bleeding, discharge, and swelling, MS/Extremity: Negative for injury and deformity, Skin: Negative for injury, rash, and discoloration, Neuro: Negative for headache, weakness, numbness, tingling, and seizure, Psych: Negative for depression, anxiety, suicide ideation, homicidal ideation, and hallucinations, Allergy/Immunology: Negative for hives, rash, and allergies, Endocrine: Negative for neck swelling, polydipsia, polyuria, polyphagia, and marked weight changes, Hematologic/Lymphatic: Negative for swollen nodes, abnormal bleeding, and unusual bruising. 04:19 Respiratory: Positive for cough, shortness of breath, wheezing, inspiratory, expiratory. Exam: 04:19 Constitutional: This is a well developed, well nourished patient who is awake, alert, kyle and in no acute distress. Head/Face: Normocephalic, atraumatic. Eyes: Pupils equal round and reactive to light, extra-ocular motions intact. Lids and lashes normal. Conjunctiva and sclera are non-icteric and not injected. Cornea within normal limits. Periorbital areas with no swelling, redness, or edema. ENT: Nares patent. No nasal discharge, no septal abnormalities noted. Tympanic membranes are normal and external auditory canals are clear. Oropharynx with no redness, swelling, or masses, exudates, or evidence of obstruction, uvula midline. Mucous membranes moist. Neck: Trachea midline, no thyromegaly or masses palpated, and no cervical lymphadenopathy. Supple, full range of motion without nuchal rigidity, or vertebral point tenderness. No Meningismus. Chest/axilla: Normal chest wall appearance and motion. Nontender with no deformity. No lesions are appreciated. Cardiovascular: Regular rate and rhythm with a normal S1 and S2. No gallops, murmurs, or rubs. Normal PMI, no JVD. No pulse deficits. Abdomen/GI: Soft, non-tender, with normal bowel sounds. No distension or tympany. No guarding or rebound. No evidence of tenderness throughout. Back: No spinal tenderness. No costovertebral tenderness. Full range of motion. Male : Normal genitalia with no discharge or lesions. Skin: Warm, dry with normal turgor. Normal color with no rashes, no lesions, and no evidence of cellulitis. MS/ Extremity: Pulses equal, no cyanosis. Neurovascular intact. Full, normal range of motion. Neuro: Awake and alert, GCS 15, oriented to person, place, time, and situation. Cranial nerves II-XII grossly intact. Motor strength 5/5 in all extremities. Sensory grossly intact. Cerebellar exam normal. Normal gait. Psych: Awake, alert, with orientation to person, place and time. Behavior, mood, and affect are within normal limits. 04:19 Respiratory: mild respiratory distress is noted, Respirations: labored breathing, that is mild, Breath sounds: bronchial sounds, decreased breath sounds, rhonchi, wheezing: that is mild, that is moderate. Vital Signs: 04:00 BP 134 / 98; Pulse 68; Resp 17; Temp 98.2(O); Pulse Ox 97% on R/A; Weight 54.43 kg; bs1 Height 5 ft. 2 in. (157.48 cm); Pain 0/10; 05:00 BP 177 / 48; Pulse 57; Pulse Ox 100% on R/A; Pain 0/10; bs1 06:00 BP 176 / 54; Pulse 57; Pulse Ox 99% ; Pain 0/10; bs1 06:57 BP 174 / 48; Pulse 60; Resp 16; Pulse Ox 99% on R/A; Pain 0/10; bs1 04:00 Body Mass Index 21.95 (54.43 kg, 157.48 cm) bs1 Procedures: 04:19 Peripheral line: by aseptic technique a peripheral line was placed in the left external kyle jugular vein. MDM: 03:45 Patient medically screened. [facility] 04:21 Data reviewed: vital signs, nurses notes, lab test result(s), EKG, radiologic studies, [facility] plain films. 08/08 03:46 Order name: Basic Metabolic Panel; Complete Time: 06:51 [facility] 08/08 03:46 Order name: BNP; Complete Time: 06:51 [facility] 08/08 03:46 Order name: CBC with Diff; Complete Time: 06:51 [facility] 08/08 03:46 Order name: Ckmb; Complete Time: 06:51 [facility] 08/08 03:46 Order name: CPK; Complete Time: 06:51 [facility] 08/08 03:46 Order name: LFT's; Complete Time: 06:51 [facility] 08/08 03:46 Order name: Magnesium; Complete Time: 06:51 [facility] 08/08 03:46 Order name: PT-INR; Complete Time: 06:51 [facility] 08/08 03:46 Order name: Ptt, Activated; Complete Time: 06:51 [facility] 08/08 03:46 Order name: Troponin (emerg Dept Use Only); Complete Time: 06:51 [facility] 08/08 03:46 Order name: Lipase; Complete Time: 06:51 [facility] 08/08 03:46 Order name: Blood Culture Adult (2) kyle 08/08 03:46 Order name: Urine Culture [facility] 08/08 04:30 Order name: Basic Metabolic Panel EDMS 08/08 03:46 Order name: XRAY Chest (1 view) [facility] 08/08 03:46 Order name: EKG; Complete Time: 03:47 [facility] 08/08 04:30 Order name: Basic Metabolic Panel EDMS 08/08 04:30 Order name: BNP B-Type Natriuretic Peptide EDMS 08/08 04:30 Order name: BNP B-Type Natriuretic Peptide EDMS 08/08 04:30 Order name: CBC with Automated Diff EDMS 08/08 04:30 Order name: CBC with Automated Diff EDMS 08/08 04:30 Order name: Troponin I EDMS 08/08 04:30 Order name: Troponin I EDMS 08/08 04:30 Order name: Troponin I EDMS 08/08 04:30 Order name: Echo with Doppler EDNJ 08/08 03:46 Order name: Cardiac monitoring; Complete Time: 04:52 [facility] 08/08 03:46 Order name: EKG - Nurse/Tech; Complete Time: 04:52 [facility] 08/08 03:46 Order name: IV Saline Lock; Complete Time: 04:52 [facility] 08/08 03:46 Order name: Labs collected and sent; Complete Time: 04:52 [facility] 08/08 03:46 Order name: O2 Per Protocol; Complete Time: 04:52 [facility] 08/08 03:46 Order name: O2 Sat Monitoring; Complete Time: 04:52 [facility] 08/08 04:30 Order name: 2 GM Sodium EDNJ 08/08 04:30 Order name: CONS Physician Consult EDMS Administered Medications: 04:18 CANCELLED (Duplicate Order): NS 0.9% 500 ml IV at bolus once kyle 04:18 CANCELLED (Duplicate Order): SOLU-Medrol 125 mg IVP once kyle 04:23 Not Given (Duplicate Order): NS 0.9% 1000 ml IV at 75 ml/hr continuous kyle 05:03 Drug: Albuterol - atroVENT (3:1) (2.5 mg - 0.5 mg) 3 ml Route: Nebulizer; bs1 06:10 Follow up: Response: No adverse reaction bs1 06:11 Not Given (Medication not available, ordered for 0900 in [employer]): Cefepime 1 grams bs1 IVPB at 200 ml/hr once over 30 mins; (mix in NS 100 mL) Disposition: 08/08/17 04:24 Hospitalization ordered by Daniel Arguelles for Inpatient Admission. Preliminary diagnosis are Dyspnea, Unspecified systolic (congestive) heart failure, End stage renal disease - dialysis m,w,f, Chronic obstructive pulmonary disease with (acute) exacerbation, Anemia, unspecified. - Bed requested for Telemetry/MedSurg (Inpatient). - Status is Inpatient Admission. ph - Condition is Fair. - Problem is new. - Symptoms have improved. UTI on Admission? No Signatures: Dispatcher [employer] EDMS Elisa Ortiz RN Jian Dobbins MD MD cha Hall, Patricia, RN RN ph Salazar, Brittany RN RN bs1 Corrections: (The following items were deleted from the chart) 04:18 04:16 NS 0.9% 500 ml IV at bolus once ordered. kyle wright 04:18 04:16 SOLU-Medrol 125 mg IVP once ordered. kyle wright
--- NOTE | 2017-08-08 04:25 | ER ---
Nurse's Notes [facility] Name: Jim Rockwell Age: 81 yrs Sex: Male : 1935 Arrival Date: 08/08/2017 Time: 03:43 Bed 7 Private MD: Diagnosis: Dyspnea;Unspecified systolic (congestive) heart failure;End stage renal disease-dialysis m,w,f;Chronic obstructive pulmonary disease with (acute) exacerbation;Anemia, unspecified Presentation: 08/08 03:55 Presenting complaint: EMS states: "Patients called states patient has c/o SOB at bs1 that started around 0230, hx of COPD, CHF, patient 96% on room air, pulse 65." patient denies any chest pain, SOB at this time. Transition of care: patient was not received from another setting of care. Onset of symptoms was August 08, 2017 at 02:30. Care prior to arrival: Glucose check: 120. 03:55 Method Of Arrival: EMS: [facility] bs1 03:55 Acuity: BALDEMAR 3 bs1 Historical: - Allergies: 04:00 No Known Allergies; bs1 - Home Meds: 04:00 amlodipine oral [Active]; Plavix Oral [Active]; Ferrous Sulfate Oral [Active]; losartan bs1 oral oral [Active]; Metoprolol Tartrate Oral [Active]; - PMHx: 04:00 ESRD; htn; CVA; CHF; COPD; bs1 - PSHx: 04:00 Unable to obtain; bs1 - Immunization history:: Adult Immunizations up to date. - Social history:: Smoking status: Patient uses tobacco products, pipe, PRN. - Family history:: not pertinent. Screenin:40 Abuse screen: Denies threats or abuse. Denies injuries from another. Nutritional bs1 screening: No deficits noted. Tuberculosis screening: No symptoms or risk factors identified. Fall Risk Fall in past 12 months (25 points). No secondary diagnosis (0 pts). IV access (20 points). Ambulatory Aid- Crutches/Cane/Walker (15 pts). Gait- Weak (10 pts.). Mental Status- Oriented to own ability (0 pts). Total Pantoja Fall Scale indicates High Risk Score (45 or more points). Assessment: 04:00 General: Appears in no apparent distress. uncomfortable, Behavior is calm, cooperative, bs1 flat. Pain: Denies pain. Neuro: Level of Consciousness is awake, alert, obeys commands, Oriented to person, place, situation. Cardiovascular: Denies chest pain, lightheadedness, palpitations, syncope, Heart tones S1 S2 present Capillary refill < 3 seconds Patient's skin is warm and dry. Respiratory: Reports shortness of breath at rest on exertion since 0230 am Airway is patent Trachea midline Respiratory effort is even, unlabored, Respiratory pattern is regular, symmetrical, Breath sounds are diminished bilaterally. GI: Reports diarrhea, incontinence. : No deficits noted. No signs and/or symptoms were reported regarding the genitourinary system. EENT: No deficits noted. No signs and/or symptoms were reported regarding the EENT system. Derm: Skin has skin tears on mid forehead, bilateral arms Bruising that is dark purple, on right arm and left arm. Musculoskeletal: Circulation, motion, and sensation intact. Capillary refill < 3 seconds, Range of motion: limited in all extremities, patient reports weakness. 05:00 Reassessment: Patient appears in no apparent distress at this time. No changes from bs1 previously documented assessment. Patient and/or family updated on plan of care and expected duration. Pain level reassessed. Patient is alert, oriented x 3, equal unlabored respirations, skin warm/dry/pink. 06:00 Reassessment: No changes from previously documented assessment. Patient and/or family bs1 updated on plan of care and expected duration. Pain level reassessed. Patient is alert, oriented x 3, equal unlabored respirations, skin warm/dry/pink. 06:58 Reassessment: No changes from previously documented assessment. Patient and/or family bs1 updated on plan of care and expected duration. Pain level reassessed. Patient is alert, oriented x 3, equal unlabored respirations, skin warm/dry/pink. 07:02 Reassessment: Report given to BRIAN Sandra. bs1 Vital Signs: 04:00 BP 134 / 98; Pulse 68; Resp 17; Temp 98.2(O); Pulse Ox 97% on R/A; Weight 54.43 kg; bs1 Height 5 ft. 2 in. (157.48 cm); Pain 0/10; 05:00 BP 177 / 48; Pulse 57; Pulse Ox 100% on R/A; Pain 0/10; bs1 06:00 BP 176 / 54; Pulse 57; Pulse Ox 99% ; Pain 0/10; bs1 06:57 BP 174 / 48; Pulse 60; Resp 16; Pulse Ox 99% on R/A; Pain 0/10; bs1 04:00 Body Mass Index 21.95 (54.43 kg, 157.48 cm) bs1 ED Course: 03:43 Patient arrived in ED. em1 03:45 Jian Alliosn MD is Attending Physician. kyle 03:54 Mckenna Green, BRIAN is Primary Nurse. bs1 03:58 Triage completed. bs1 04:00 X-ray completed. Portable x-ray completed in exam room. Patient tolerated procedure kw well. 04:02 XRAY Chest (1 view) In Process Unspecified. EDMS 04:12 Inserted saline lock: 18 gauge in left EJ, using aseptic technique. Inserted By Dr jasmin Allison Missed attempt(s): 22 gauge in right upper arm. missed attempt 22g in right FA. 04:23 Daniel Arguelles MD is Hospitalizing Provider. kyle 04:41 No provider procedures requiring assistance completed. bs1 04:41 Patient has correct armband on for positive identification. Placed in gown. Bed in low bs1 position. Call light in reach. Side rails up X 1. dry mop maker on. Pulse ox on. NIBP on. Warm blanket given. 04:41 Arm band placed on left wrist. Patient placed in an exam room, on a stretcher. bs1 06:07 Patient admitted, IV remains in place. intact. bs1 Administered Medications: 04:18 CANCELLED (Duplicate Order): NS 0.9% 500 ml IV at bolus once kyle 04:18 CANCELLED (Duplicate Order): SOLU-Medrol 125 mg IVP once kyle 04:23 Not Given (Duplicate Order): NS 0.9% 1000 ml IV at 75 ml/hr continuous kyle 05:03 Drug: Albuterol - atroVENT (3:1) (2.5 mg - 0.5 mg) 3 ml Route: Nebulizer; bs1 06:10 Follow up: Response: No adverse reaction bs1 06:11 Not Given (Medication not available, ordered for 0900 in [employer]): Cefepime 1 grams bs1 IVPB at 200 ml/hr once over 30 mins; (mix in NS 100 mL) Outcome: 04:24 Decision to Hospitalize by Provider. kyle 06:07 Admitted to ER Hold. Please see [facility] for further documentation. bs1 06:07 Condition: stable 06:07 Instructed on the need for admit. 07:53 Patient left the ED. ph Signatures: Dispatcher [employer] EDJian Velasco MD MD cha Martinez, Yo em1 Kelly Miner Patricia RN RN Mckenna Green RN RN bs1 Corrections: (The following items were deleted from the chart) 04:37 04:12 Inserted saline lock: 18 gauge in left EJ, using aseptic technique. Inserted By bs1 Dr Allison bs1
[2017-08-08] MEDS ORDERED: ALBUTEROL 2.5 MG/3 ML NEB SOL NEB PRN (04:27)
[2017-08-08] MEDS ORDERED: IPRATROPIUM BROM 0.5MG/2.5ML NEB PRN (04:27)
[2017-08-08 04:33] LABS: Absolute Lymphocytes (CBC) 0.8 K/uL (0.7-4.9); Absolute Monocytes 0.8 K/uL (0.1-1.3); Absolute Neutrophil 4.9 K/uL (1.8-8.0); Basophils % 0.9 % (0-1.3); Hematocrit 29.9 % (39.6-49.0); Lymphocytes % 11.1 % (15.3-44.8); MCH 28.6 pg (27.0-35.0); MCV 91.6 fL (80-100); MPV 7.9 fL (7.6-11.3); Monocytes % 10.7 % (3.3-12.3); RBC Red Blood Cell Count 3.27 M/uL (4.33-5.43)
[2017-08-08 04:37] LABS: Protime INR 1.09
[2017-08-08 04:47] LABS: Potassium 3.8 mEq/L (3.6-5.0)
[2017-08-08 04:53] LABS: Albumin 3.5 g/dL (3.2-5.5); Bilirubin Direct 0.1 mg/dL (0-0.2); Bilirubin Total 0.3 mg/dL (0.3-1.2); Protein, Total 6.8 g/dL (6.0-8.3)
[2017-08-08 04:56] LABS: CKMB Creatine Kinase MB 1.8 ng/ml (0.3-4.0)
[2017-08-08] MEDS ORDERED: IPRATROPIUM BROM 0.5MG/2.5ML ONE (04:56)
[2017-08-08] MEDS ORDERED: ALBUTEROL 2.5 MG/3 ML NEB SOL ONE (04:56)
--- NOTE | 2017-08-08 07:00 | EKG ---
Test Date: 2017-08-08 Test Time: 04:30:57 Motorcycle Subassembler: FEROZ MEASUREMENT RESULTS: Intervals: Rate: 64 OH: 138 QRSD: 124 QT: 498 QTc: 513 [place]: P: 87 OH: 138 QRS: -89 T: 236 INTERPRETIVE STATEMENTS: Normal sinus rhythm Possible Left atrial enlargement Left axis deviation Right bundle branch block T wave abnormality, consider inferolateral ischemia Abnormal ECG Compared to ECG 06/13/2017 13:43:00 Left-axis deviation now present T-wave abnormality still present Electronically Signed On 08-08-17 06:59:54 CDT by Clint Lubin
--- NOTE | 2017-08-08 08:13 | RAD REPORT ---
EXAM DESCRIPTION: George Single View08/08/2017 4:03 am CLINICAL HISTORY: Shortness of breath COMPARISON: 2016 FINDINGS: Mild interstitial pulmonary opacities are present bilaterally. The heart is borderline enl arged IMPRESSION: Mild interstitial pulmonary edema is suspected
[2017-08-08] MEDS: FUROSEMIDE 20 MG/ 2ML VIAL IV SCH ×2 (08:21→17:00)
[2017-08-08] MEDS: FAMOTIDINE 20 MG/2 ML VIAL IV SCH ×2 (08:21→21:14)
[2017-08-08] MEDS: METHYLPREDNISOLONE 40 MG INJ IV SCH ×2 (08:21→17:00)
[2017-08-08] MEDS ORDERED: CEFEPIME 1 GM/VIAL IV SCH (09:00)
[2017-08-08] MEDS: CEFEPIME/SWI 1gm 1 GM/10 ML SYR IV SCH (09:02)
[2017-08-08] MEDS ORDERED: METOPROLOL TAR 50 MG TAB PO SCH (11:00)
--- NOTE | 2017-08-08 12:20 | ECHO ---
HEIGHT: 5 ft 2 in WEIGHT: 120 lb 0 oz DATE OF STUDY: 07/29/[address]: Jian Allison MD 2-DIMENSIONAL: YES M.MODE: YES DOPPLER: YES COLOR FLOW: YES TDS: PORTABLE: DEFINITY: BUBBLE STUDY: DIAGNOSIS: CONGESTIVE HEART FAILURE/ CHONIC OBSTRUCTIVE PULMONARY DISEASE CARDIAC HISTORY: CATHERIZATION: NO SURGERY: NO PROSTHETIC VALVE: NO PACEMAKER: NO MEASUREMENTS (cm) DIASTOLIC (NORMALS) SYSTOLIC (NORMALS) IVSd 1.4 (0.6-1.2) LA Diam 3.5 (1.9-4.0) LVEF 70% LVIDd 4.3 (3.5-5.7) LVIDs 2.6 (2.0-3.5) %FS 39% LVPWd 1.5 (0.6-1.2) Ao Diam 2.6 (2.0-3.7) 2 DIMENSIONAL ASSESSMENT: RIGHT ATRIUM: NORMAL LEFT ATRIUM: DILATED RIGHT VENTRICLE: NORMAL LEFT VENTRICLE: LEFT VENTRICULAR HYPERTROPHY TRICUSPID VALVE: NORMAL MITRAL VALVE: NORMAL PULMONIC VALVE: NORMAL AORTIC VALVE: NORMAL PERICARDIAL EFFUSION: NONE AORTIC ROOT: NORMAL LEFT VENTRICULAR WALL MOTION: NORMAL DOPPLER/COLOR FLOW: IMPAIRED LEFT VENTRICULAR RELAXATION. MILD MITRAL REGURGITATION. NO AORTIC STENOSIS OR AORTIC REGURGITATION. COMMENTS: NORMAL LEFT VENTRICULAR EJECTION FRACTION. AORTIC SCLEROSIS WITH NO AORTIC STENOSIS OR AORTIC REGURGITATION. LEFT VENTRICULAR HYPERTROPHY. DILATED LEFT ATRIUM. IMPAIRED LEFT VENTRICULAR RELAXATION. MILD MITRAL REGURGITATION. TECHNOLOGIST: NICHOLAS MENARD
[2017-08-08] MEDS ORDERED: HYDRALAZINE HCL 25 MG TABLET PO SCH (14:00)
[2017-08-08] MEDS: SEVELAMER CARBONATE 800 MG TABLET PO SCH (17:00)
[2017-08-08] MEDS: CALCIUM CARBONATE CHEW 500MG TAB PO SCH (17:00)
--- NOTE | 2017-08-08 17:55 | CON ---
Date of Consultation: 08/08/2017 Additional Consulting Physician: Dr. Arguelles. Reason For Consultation: Elevated BUN and creatinine, fluid overload, end-stage renal disease, fluid management. History Of Present Illness: This is a pleasant, unfortunate 81-year-old gentleman with significant p ast medical history of COPD, CVA, end-stage renal disease secondary to hypertension and cardiorenal, on hemodialysis Saturday, Saturday, Saturday, last dialysis yesterday. CVA, COPD, peripheral vascular d isease, renal artery stenosis. The patient was in his regular state of health. He finished his dial ysis yesterday, then the patient all of a sudden developed shortness of breath with chest tightness. For that reason, he reported to the emergency room. In the emergency room, found to be over volume. For that reason, the patient admitted. The patient denied any palpitation. No nausea. No vomitin g. No diaphoresis. The patient does not have any incident on the dialysis. Been controlling his interdialytic weight gain. Past Medical History: Include; 1.COPD. 2.CVA. 3.End-stage renal disease, on hemodialysis, recently started back in 2016. 4.Carotid stenosis. 5.Peripheral vascular disease. 6.Renal artery stenosis. 7.End-stage renal disease on hemodialysis, Saturday, Saturday, Saturday at [facility]. Family History: Positive for hypertension and kidney disease. Social History: Denies smoking. Denies drinking. Denies drug abuse. Past Surgical History: Include; 1.Enterectomy. 2.Peripheral angioplasty. 3.Renal stenting. 4.AV fistula creation. 5.Hernia repair. Review of Systems: Head and Neck: No red eye. No ear pain. GI: No nausea. No vomiting. : No polyuria. No dysuria. No hematuria. INSULATION BLANKET MAKER: Not applicable. Respiratory: Has shortness of breath. Cardiovascular: Has chest tightness. Endocrine: No polydipsia. Skin: No rash. Allergies: NO KNOWN DRUG ALLERGIES. Physical Examination: Vital Signs: When I saw the patient, blood pressure 168/66, pulse of 63, afebrile. Chest: Crackles bilateral. Heart: S1, S2. Systolic murmur. Abdomen: Soft, nontender. Extremities: No edema. Neurological: Alert and oriented x3. No tremor. Laboratory Data: WBC 7.4, H and H 9.3/29.9, platelets 297. Sodium 135, potassium 3.8, bicarb 27, BU N 21, creatinine 3.4, calcium 8.8. Magnesium of 2. Medications: Current medications in the hospital include cefepime, albuterol, hydralazine 50 t.i.d., metoprolol 100 b.i.d., Tylenol, Lasix 40 b.i.d., Pepcid. Assessment And Plan: 1.End-stage renal disease, over volume. I can arrange for extra dialysis just sequential of 2 other . Today, we will try to remove 3 L and we will monitor. 2.Hypertension, controlled optimal. We will utilize blood pressure for more ultrafiltration. 3.Anemia of chronic kidney disease, resume Epogen. 4.Secondary hyperparathyroidism, stable. I am going to go ahead and follow up his phosphor level. I am going to go ahead and resume his Renvela. 5.Congestive heart failure with cardiorenal and renal artery stenosis over volume. As above, we naif l ultrafiltrate the patient. Home Medications: Include calcium carbonate 1 g b.i.d., Renvela 1600 with each meal, metoprolol 100 b.i.d., hydralazine 50 t.i.d., Plavix 75, atorvastatin. Current Medications: Includes cefepime, Lasix, hydralazine, and breathing treatment. Thank you, Dr. Arguelles for allowing us to participate in the care of your patient. ERVIN Voice ID: [id number] Report ID: [id number]
[2017-08-08] MEDS ORDERED: HOME MED 1 EA UNK (Metoprolol Tartrate [Metoprolol Tartrate] 100 MG) PO SCH (21:00)
[2017-08-08] MEDS: METOPROLOL TAR 50 MG TAB PO SCH (21:00)
[2017-08-08] MEDS: HYDRALAZINE HCL 25 MG TABLET PO SCH (21:14)
[2017-08-08] MEDS: ATORVASTATIN 20 MG TAB PO SCH (21:14)
[2017-08-08] MEDS: LORAZEPAM 1 MG TABLET PO PRN (22:37)
[2017-08-09] MEDS: METHYLPREDNISOLONE 40 MG INJ IV SCH ×3 (02:18→15:58)
[2017-08-09] MEDS: LORAZEPAM 1 MG TABLET PO PRN ×3 (03:19→21:36)
[2017-08-09] MEDS: METOPROLOL TAR 50 MG TAB PO SCH ×2 (03:39→23:45)
[2017-08-09 06:19] LABS: Absolute Lymphocytes (CBC) 0.5 K/uL (0.7-4.9); Absolute Monocytes 0.2 K/uL (0.1-1.3); Absolute Neutrophil 8.3 K/uL (1.8-8.0); Basophils % 0.3 % (0-1.3); Eosinophils % 0.2 % (0-4.4); Hematocrit 32.4 % (39.6-49.0); Lymphocytes % 5.6 % (15.3-44.8); MCH 28.5 pg (27.0-35.0); MCV 92.2 fL (80-100); MPV 8.3 fL (7.6-11.3); Monocytes % 2.1 % (3.3-12.3); RBC Red Blood Cell Count 3.51 M/uL (4.33-5.43)
[2017-08-09 07:10] LABS: Albumin 3.6 g/dL (3.2-5.5); Phosphorus 4.6 mg/dL (2.5-4.3); Potassium 5.2 mEq/L (3.6-5.0)
[2017-08-09] MEDS: SEVELAMER CARBONATE 800 MG TABLET PO SCH ×3 (08:21→15:57)
[2017-08-09] MEDS: CLOPIDOGREL 75 MG TABLET PO SCH (08:22)
[2017-08-09] MEDS: ASPIRIN EC 81 MG TAB PO SCH (08:22)
[2017-08-09] MEDS: CALCIUM CARBONATE CHEW 500MG TAB PO SCH ×3 (08:22→15:57)
[2017-08-09] MEDS: HYDRALAZINE HCL 25 MG TABLET PO SCH ×3 (08:22→23:45)
[2017-08-09] MEDS: FUROSEMIDE 20 MG/ 2ML VIAL IV SCH ×2 (08:23→15:58)
[2017-08-09] MEDS: FAMOTIDINE 20 MG/2 ML VIAL IV SCH ×2 (08:23→23:44)
--- NOTE | 2017-08-09 08:26 | RAD REPORT ---
EXAM DESCRIPTION: RAD - Chest Pa And Lat (2 Views) - 08/09/2017 7:55 am CLINICAL HISTORY: CHF COMPARISON: August 08February 2016 TECHNIQUE: AP and lateral views obtained. FINDINGS: The lungs are slightly underinflated. Mild cardiomegaly is present. Vasculature and inters titial markings have improved but not yet reached a baseline appearance seen February 2016. Trachea i s midline. No progressive pleural or parenchymal process. No pleural effusion or pneumothorax seen. No acute bony finding noted. No aortic abnormality. IMPRESSION: Partial resolution of CHF/volume overload pattern since August 08. No new or progressive process.
[2017-08-09] MEDS: CEFEPIME/SWI 1gm 1 GM/10 ML SYR IV SCH (08:49)
--- NOTE | 2017-08-09 21:20 | PN ---
Date of Progress Note: 08/09/2017 Subjective: The patient states he does feel more comfortable as far as his breathing is concerned. His chest x-ray did show some marked improvement and whatever, the dialysis situation improved his co ndition and/or the diuresis, we will continue on a diuretic at the time of discharge. There is some question as to whether or not he was taking this at home recently and this will be determined as far as the dosage and actual medication prior to his discharge, which he should be able to in the morning . He is scheduled for dialysis later today. The possibility of home dialysis was also considered wi th the patient. HR/MODL Voice ID: [id number] Report ID: [id number]
[2017-08-09] MEDS: EPOETIN ALFA 10,000 UNIT/ML VIAL IV SCH (22:28)
[2017-08-09] MEDS: ATORVASTATIN 20 MG TAB PO SCH (23:45)
[2017-08-10] MEDS: METHYLPREDNISOLONE 40 MG INJ IV SCH ×3 (01:42→16:58)
[2017-08-10] MEDS: LORAZEPAM 1 MG TABLET PO PRN ×2 (01:45→21:18)
--- NOTE | 2017-08-10 01:47 | HP ---
Date of Admission: 08/08/2017 Chief Complaint: Shortness of breath. History Of Present Illness: The patient states he had been getting progressively short of breath ove r the last few days, similar to numerous occasions in the past, however became pronounced enough that he felt the need to be seen in the emergency room, therefore presented to the ER. Past History: The patient has had numerous hospitalizations over the past few years for problems ran ging from renal failure, presently on dialysis to coronary artery disease, CVA, and progressive demen tia. Medications: He is currently on medications for his blood pressure as Plavix and amlodipine and losa rtan. The patient has been followed by Neurology, Cardiology, and myself. As mentioned, undergoes dialysis . Apparently problems as of late. Social History: The patient does smoke a pipe. No alcohol intake. Family History: Noncontributory. Physical Examination: General: Patient is an elderly male in mild respiratory distress. Vital Signs: Stable vital signs other than respiratory rate which is 30. Head and Neck: Normocephalic. Pupils equal, react to accommodation. Fundi negative. Trachea midli ne. Thyroid not palpable. ENT: Negative. Chest: High-pitched rhonchi throughout. Minimal use of accessory muscles to breathe. Cardiovascular: PMI, midclavicular line. Heart sounds normal. Peripheral pulses are present and eq ual bilaterally. Abdomen: No organomegaly. Bowel sounds present. Extremities: Good tone and movement bilaterally. Reflexes physiologic. Rectal: Deferred. Impression: Acute exacerbation of chronic obstructive pulmonary disease; acute bronchitis; congestiv e heart failure; renal failure, on dialysis; coronary artery disease by history; post cerebrovascular accident; progressive dementia, mild. Plan: The patient will be admitted and placed on IV Lasix, IV antibiotics due to infectious etiology and we will cover with IV steroids for COPD. Consultation will be obtained with his endoscopy technician to continue his dialysis while in the hospital. Noted that his BNP was mildly elevated. Therefore, __ failure. Cardiac rey be worked up as well. HR/MODL Voice ID: [id number]
--- NOTE | 2017-08-10 01:50 | HP ---
Date of Admission: 08/08/2017 The patient is undergoing dialysis today. Post dialysis, he got quite confused. He was given Ativan and difficult to obtain a reliable history from him but his examination showed decrease in breath so unds, however, is not wheezing as much as the prior when he was admitted. Also, his chest x-ray show ed some improvement as well. So, I feel overriding component on this admission was probably CHF with exacerbation of COPD contributing to his problems. We will continue on the above regimen including IV Lasix and repeat the chest x-ray. Depending on the results, continue with the present regimen. HR/MODL Voice ID: [id number]
--- NOTE | 2017-08-10 01:56 | PN ---
Date of Progress Note: 08/09/2017 Subjective: The patient slightly feeling better. Yesterday got agitated on dialysis. The patient i s scheduled for dialysis today. Physical Examination: Vital Signs: When I saw the patient, blood pressure 184/77, pulse of 76. Afebrile. Chest: Crackles bilateral base. Heart: S1, S2. Regular. Abdomen: Soft, nontender. Extremity: No edema. Current Medications: Aspirin, atorvastatin, PhosLo, cefepime, Epogen, Lasix 40 b.i.d., hydralazine 5 0 t.i.d., Solu-Medrol, metoprolol, and Renvela. Laboratory Data: WBC 9, H and H 10/32.4, platelet 313. Sodium 136, potassium 5.2, bicarb 24. BUN 4 4, creatinine 4.8, calcium 9.4, phosphorus 4.6. Assessment And Plan: 1.End-stage renal disease, over volume, status post dialysis yesterday. Today, his regular day of d ialysis. We will continue to monitor. 2.Hypertension, controlled, not optimal. I am going to go ahead and add nitroglycerin to his regime n to have better blood pressure control and we will add low dose of beta nat. We will follow up. 3.Secondary hyperparathyroidism. Continue binder. 4.Anemia. I am going to continue GALLO. 5.Congestive heart failure. We will try to establish better volume control with ultrafiltration. 6.Continue Lasix. 7.Deconditioning. The patient has poor function, difficulty ambulating. We will continue PT and OT . We discussed with the family. Family decided for home dialysis. We will arrange for home dialysi s given that the patient has difficulty with transportation and ambulation. Case discussed with the patient and family by bedside including the son and the who verbalized understanding. Discussed with Dr. Kailee huff. REGULO/HOMER Voice ID: [id number] Report ID: [id number]
[2017-08-10] MEDS: CARVEDILOL 3.125 MG TAB PO SCH ×2 (05:34→16:59)
[2017-08-10 06:59] LABS: Albumin 3.7 g/dL (3.2-5.5); Phosphorus 4.2 mg/dL (2.5-4.3); Potassium 4.5 mEq/L (3.6-5.0)
[2017-08-10] MEDS: FAMOTIDINE 20 MG/2 ML VIAL IV SCH (08:13)
[2017-08-10] MEDS: FUROSEMIDE 20 MG/ 2ML VIAL IV SCH ×2 (08:13→16:58)
[2017-08-10] MEDS: METOPROLOL TAR 50 MG TAB PO SCH ×2 (08:14→20:32)
[2017-08-10] MEDS: CALCIUM CARBONATE CHEW 500MG TAB PO SCH ×3 (08:14→16:55)
[2017-08-10] MEDS: SEVELAMER CARBONATE 800 MG TABLET PO SCH ×3 (08:14→16:56)
[2017-08-10] MEDS: HYDRALAZINE HCL 25 MG TABLET PO SCH ×3 (08:14→20:32)
[2017-08-10] MEDS: CLOPIDOGREL 75 MG TABLET PO SCH (08:15)
[2017-08-10] MEDS: ASPIRIN EC 81 MG TAB PO SCH (08:15)
[2017-08-10] MEDS: NITROGLYCERIN 0.4 MG/HR (10 MG) PATCH TD SCH (08:17)
[2017-08-10] MEDS: CEFEPIME/SWI 1gm 1 GM/10 ML SYR IV SCH (10:03)
--- NOTE | 2017-08-10 11:43 | RAD REPORT ---
EXAM DESCRIPTION: RAD - Chest Pa And Lat (2 Views) - 08/10/2017 10:22 am CLINICAL HISTORY: Follow-up pneumonia CHF COMPARISON: August 09 and August 08 TECHNIQUE: PA and lateral views of the chest were obtained. FINDINGS: The lungs are fibrotic as a baseline. No new infiltrate or mass. Lung markings are stable from prior day imaging. Heart size is normal and central vasculature is within normal limits. No p leural effusion or pneumothorax seen. No acute bony finding noted. No aortic abnormality. IMPRESSION: Chest exam is stable from August 09. No new or progressive process. No further reduction in interstitial prominence.
--- NOTE | 2017-08-10 14:58 | P.PN ---
Date of Service: 08/10/17 Subjective: Patient seen and examined at bedside. Chart Reviewed. Pt overnight was agitated and combative and was given Ativan 0.5mg to help him. this morning pt is Sleepy and tired. Physical Examination: Vital Signs: Stable Gen: AAOx 3, NAD HEENT: NT, NC and PERRLA Chest: Crackles bilateral base, Normal Breath sounds Heart: S1, S2. Regular. Abdomen: Soft, nontender. Extremity: No edema. Neuro: Tiredness, CN 2 - 12 intact. Laboratory Data: CMP: Sodium 136, Potassium 4.5, Chloride 101, Carbon Dioxide 25, BUN 35 H, Creatinine 3.69 H D, Estimated GFR 16 L, Glucose 147 H, Calcium 9.5, Phosphorus 4.2, Albumin 3.7 Assessment And Plan: 1. CHF exacerbation: -Volume overload -IV lasix BID and HD -Nephrology consulted. Appreciated Reccs -Echo WNL. 2. End-stage renal disease,status post dialysis yesterday. -We will continue to monitor. -Resume HD here in the hospital -DC plan for Home Dialysis -Arrangments by CM and Nephrology 3.Hypertension, controlled, -On BB and nitroglycerin now -Will continue to monitor 4.Deconditioning. -The patient has poor function with agitation and AMS last night. Was given ativan. Will Use PRN if needed. -We will continue PT and OT. We discussed with the family. GI and DVT PPX Dispo: Awaiting Clinical improvement.
--- NOTE | 2017-08-10 19:03 | PN ---
Date of Progress Note: 08/10/2017 Subjective: The patient got agitated today after Ativan. Feeling better right now. More awake. Physical Examination: Vital Signs: Blood pressure 123/54, pulse of 60, afebrile. Chest: Clear to auscultation. Heart: S1, S2. Regular. Abdomen: Soft, nontender. Extremities: No edema. neuro: Nonfocal. Laboratory Data: WBC 9 H and H 10/32.4, and platelet 313. Sodium 136, potassium 4.5, bicarb 25, BUN 35, creatinine 3.6, calcium 9.5, and phosphorus 4.2. Medications: Current medications the patient on include; 1.Calcium carbonate. 2.Plavix. 3.Epogen. 4.Atorvastatin. 5.Carvedilol 3.125 b.i.d. 6.Hydralazine. 7.Metoprolol. 8.Nitroglycerin. 9.Lasix. 10.Renvela. Assessment And Plan: 1.End-stage renal disease, over volume, status post dialysis, recovered back to baseline. 2.Congestive heart failure, status post dialysis, stabilized. 3.Over volume, as above. 4.Hypertension, controlled, optimal. Continue current medication. 5.Anemia of chronic kidney disease. Continue Epogen. 6.Deconditioning. Poor ambulating. Family interested on home hemo. We will follow up with home hemo program [facility]. Paperwork has been sent. Apparently wait ing for a home inspection. ERVIN Voice ID: [id number] Report ID: [id number]
[2017-08-10] MEDS: ATORVASTATIN 20 MG TAB PO SCH (20:33)
[2017-08-10] MEDS: ACETAMINOPHEN 500 MG TAB PO PRN (21:12)
[2017-08-11] MEDS: METHYLPREDNISOLONE 40 MG INJ IV SCH ×3 (01:01→16:47)
[2017-08-11] MEDS: CARVEDILOL 3.125 MG TAB PO SCH ×2 (05:26→16:52)
[2017-08-11 06:09] LABS: Albumin 3.6 g/dL (3.2-5.5); Potassium 4.8 mEq/L (3.6-5.0)
[2017-08-11] MEDS: NITROGLYCERIN 0.4 MG/HR (10 MG) PATCH TD SCH (08:18)
[2017-08-11] MEDS: FUROSEMIDE 20 MG/ 2ML VIAL IV SCH ×2 (08:19→16:48)
[2017-08-11] MEDS: CLOPIDOGREL 75 MG TABLET PO SCH (08:20)
[2017-08-11] MEDS: HYDRALAZINE HCL 25 MG TABLET PO SCH ×3 (08:20→20:32)
[2017-08-11] MEDS: ASPIRIN EC 81 MG TAB PO SCH (08:20)
[2017-08-11] MEDS: CALCIUM CARBONATE CHEW 500MG TAB PO SCH ×3 (08:20→16:47)
[2017-08-11] MEDS: METOPROLOL TAR 50 MG TAB PO SCH ×2 (08:20→20:33)
[2017-08-11] MEDS: SEVELAMER CARBONATE 800 MG TABLET PO SCH ×3 (08:20→17:15)
[2017-08-11] MEDS: ACETAMINOPHEN 500 MG TAB PO PRN (09:41)
[2017-08-11] MEDS: CEFEPIME/SWI 1gm 1 GM/10 ML SYR IV SCH (09:41)
[2017-08-11] MEDS: FAMOTIDINE 20 MG TAB PO SCH (10:30)
--- NOTE | 2017-08-11 12:37 | P.PN ---
Date of Service: 08/11/17 Subjective: Patient seen and examined at bedside. Chart Reviewed. Still having Generalized Weakness and states he feels weak. Physical Examination: Vital Signs: Stable Gen: AAOx 3, NAD HEENT: NT, NC and PERRLA Chest: Crackles bilateral base, Normal Breath sounds Heart: S1, S2. Regular. Abdomen: Soft, nontender. Extremity: No edema. Neuro: Tiredness, CN 2 - 12 intact. Laboratory Data: CMP: Sodium 136, Potassium 4.5, Chloride 101, Carbon Dioxide 25, BUN 35 H, Creatinine 3.69 H D, Estimated GFR 16 L, Glucose 147 H, Calcium 9.5, Phosphorus 4.2, Albumin 3.7 Assessment And Plan: 1. CHF exacerbation: Now resolved -IV lasix BID and HD -Nephrology consulted. Appreciated Reccs -Echo WNL. 2. End-stage renal disease,status post dialysis yesterday. -We will continue to monitor. -Resume HD here in the hospital -DC plan for Home Dialysis. Awaiting Inspection of the home today -Arrangments by CM and Nephrology 3.Hypertension, controlled, -On BB and nitroglycerin now -Will continue to monitor 4.Deconditioning. -The patient has poor function with agitation and AMS intermittently. Was given ativan day before yesterday. Will Use PRN if needed. -We will continue PT and OT. We discussed with the family. GI and DVT PPX Dispo: Awaiting Clinical improvement.
[2017-08-11] MEDS: ATORVASTATIN 20 MG TAB PO SCH (20:32)
[2017-08-11] MEDS: LORAZEPAM 1 MG TABLET PO PRN (21:38)
[2017-08-12] MEDS: METHYLPREDNISOLONE 40 MG INJ IV SCH ×3 (01:08→16:17)
--- NOTE | 2017-08-12 03:05 | PN ---
Date of Progress Note: 08/11/2017 Subjective: The patient is more awake today, resting. No shortness of breath. Physical Examination: Vital Signs: When I saw the patient, blood pressure 142/52, pulse of 68, afebrile. Chest: Crackles in the base. Heart: S1, S2. Systolic murmur. Abdomen: Soft, nontender. Extremities: No edema. Laboratory Data: WBC 9, H and H 10/32.4, and platelets 313. Sodium 134, potassium 4.8, bicarb 22, B UN 70, creatinine 5.7, calcium 9.5, and phosphorus of 6. Current Medications: The patient on, its include; 1.Tylenol. 2.Aspirin. 3.Calcium carbonate. 4.Cefepime. 5.Epogen. 6.Lasix. 7.Lorazepam. 8.Solu-Medrol. 9.Metoprolol. 10.Renvela. Assessment And Plan: 1.End-stage renal disease, normal volume currently. I will arrange for dialysis tomorrow. We will dialyze the patient. The patient is going to be cleared for discharge planning after dialysis tomorr ow. 2.Hypertension, controlled, optimal. Continue current medication. 3.Anemia. Continue Epogen. 4.Congestive heart failure. We will try to establish better volume control. 5.Deconditioning. The patient will continue supportive care. Poor ambulate. The patient is going to be arranged for home hemo. ERVIN Voice ID: [id number] Report ID: [id number]
[2017-08-12] MEDS: HYDRALAZINE HCL 20 MG/ML VIAL IV PRN (04:34)
[2017-08-12] MEDS: CARVEDILOL 3.125 MG TAB PO SCH ×3 (04:35→17:11)
[2017-08-12 06:12] VITALS: BMI 19.3
[2017-08-12 06:28] LABS: Albumin 3.7 g/dL (3.2-5.5); Phosphorus 7.5 mg/dL (2.5-4.3); Potassium 5.4 mEq/L (3.6-5.0)
[2017-08-12] MEDS: SEVELAMER CARBONATE 800 MG TABLET PO SCH ×3 (07:21→16:17)
[2017-08-12] MEDS: CALCIUM CARBONATE CHEW 500MG TAB PO SCH ×3 (07:21→16:17)
[2017-08-12] MEDS: EPOETIN ALFA 10,000 UNIT/ML VIAL IV SCH (08:52)
[2017-08-12] MEDS: HYDRALAZINE HCL 25 MG TABLET PO SCH ×3 (08:57→18:56)
[2017-08-12] MEDS: FUROSEMIDE 20 MG/ 2ML VIAL IV SCH ×2 (08:57→16:17)
[2017-08-12] MEDS: ASPIRIN EC 81 MG TAB PO SCH (08:57)
[2017-08-12] MEDS: METOPROLOL TAR 50 MG TAB PO SCH ×3 (08:57→18:57)
[2017-08-12] MEDS: FAMOTIDINE 20 MG TAB PO SCH (08:58)
[2017-08-12] MEDS: CEFEPIME/SWI 1gm 1 GM/10 ML SYR IV SCH ×2 (08:58→11:57)
[2017-08-12] MEDS: CLOPIDOGREL 75 MG TABLET PO SCH ×2 (08:58→11:56)
[2017-08-12] MEDS: NITROGLYCERIN 0.4 MG/HR (10 MG) PATCH TD SCH ×2 (08:59→12:06)
[2017-08-12] MEDS: LORAZEPAM 1 MG TABLET PO PRN ×2 (16:17→20:08)
[2017-08-12] MEDS: ACETAMINOPHEN 500 MG TAB PO PRN (18:55)
[2017-08-12] MEDS: ATORVASTATIN 20 MG TAB PO SCH (18:56)
[2017-08-13] MEDS: LORAZEPAM 1 MG TABLET PO PRN ×3 (00:01→23:33)
[2017-08-13] MEDS: METHYLPREDNISOLONE 40 MG INJ IV SCH ×3 (00:01→17:01)
--- NOTE | 2017-08-13 01:09 | PN ---
Date of Progress Note: 08/12/2017 Chief Complaint: End-stage renal disease, shortness of breath, fluid overload, congestive heart failure. Subjective: The patient is feeling better today. The patient presented to the hospital because of dyspnea and was found to have congestive heart failure. He has severe deconditioning and is to continue supportive care. He received dialysis today for metabolic clearance and to control fluid overload. Ultrafiltration was done to treat fluid overload. Review of Systems: The patient is feeling better. Denies chest pain. Denies cough. Denies fever , chills. Physical Examination: Vital Signs: Blood pressure 140/56, heart rate 68. Lungs: Few crackles at bases. Heart: S1, S2. 2/6 systolic dysfunction in left lower sternal border. Abdomen: Soft, benign. Extremities: No edema. Laboratory Data: Hemoglobin 10.0, hematocrit 32.4. Sodium 134, potassium 4.8, bicarbonate 22, BUN 70, creatinine 5.7. Impression And Plan: 1. End-stage renal disease. The patient will continue low-sodium diet and p.o. fluid restriction. The patient will have dialysis on Saturday. 2. Hypertension. Blood pressure improving. Continue current medication. 3. Congestive heart failure, chronic and acute with exacerbation. Volemia control is improving. Continue low-sodium diet and blood pressure medication. 4. Deconditioning. Continue rehab as needed. 5. Anemia in chronic kidney disease. Continue GALLO. 6. Renal osteodystrophy. Continue renal diet and binders. DENILSON/HOMER Voice ID: [id number] Report ID: [id number] MARY
[2017-08-13] MEDS: CARVEDILOL 3.125 MG TAB PO SCH ×2 (05:41→17:02)
[2017-08-13 06:19] LABS: Albumin 3.6 g/dL (3.2-5.5); Phosphorus 6.5 mg/dL (2.5-4.3); Potassium 5.2 mEq/L (3.6-5.0)
[2017-08-13] MEDS: CEFEPIME/SWI 1gm 1 GM/10 ML SYR IV SCH (09:00)
[2017-08-13] MEDS: NITROGLYCERIN 0.4 MG/HR (10 MG) PATCH TD SCH (09:00)
[2017-08-13] MEDS: HYDRALAZINE HCL 25 MG TABLET PO SCH ×3 (09:57→20:35)
[2017-08-13] MEDS: SEVELAMER CARBONATE 800 MG TABLET PO SCH ×3 (09:57→17:02)
[2017-08-13] MEDS: METOPROLOL TAR 50 MG TAB PO SCH ×2 (09:58→20:36)
[2017-08-13] MEDS: ASPIRIN EC 81 MG TAB PO SCH (09:58)
[2017-08-13] MEDS: FAMOTIDINE 20 MG TAB PO SCH (09:59)
[2017-08-13] MEDS: CLOPIDOGREL 75 MG TABLET PO SCH (09:59)
--- NOTE | 2017-08-13 10:51 | PN ---
Date of Progress Note: 08/13/2017 Subjective: The patient is more awake today, eating his breakfast. Family not decided yet about SNF /usp. Physical Examination: Vital Signs: Blood pressure 132/48, pulse of 60. Chest: Crackles on the base. Heart: S1, S2. Regular. Abdomen: Soft, nontender. Extremities: No edema. Laboratory Data: WBC 9, H and H 10/32.4, platelets 313. Sodium 131, potassium 5.2, bicarb 22, BUN 6 1, creatinine 5.9, calcium 9.6, phosphorus 6.2. Medications: Current medications the patient on its include: 1.Plavix. 2.Epogen. 3.Calcium carbonate. 4.Atorvastatin. 5.Carvedilol. 6.Hydralazine 50 t.i.d. 7.Metoprolol. 8.Nitroglycerin. 9.Lorazepam. 10.Lasix 40 b.i.d. 11.Renvela 2 tablets with each meal. Assessment And Plan: 1.End-stage renal disease. We will continue the patient on dialysis Saturday, Saturday, and Saturday. The patient is going to be scheduled for dialysis tomorrow. We will follow up the patient. 2.Hypertension, controlled, optimal. Continue current medication. 3.Anemia, stable. I am going to continue on Epogen. 4.Secondary hyperparathyroidism. I am going to go ahead and increase his Renvela to 2400. 5.Congestive heart failure, currently normal volume. 6.Deconditioning. Continue PT/OT. We will follow up with the primary. REGULO/HOMER Voice ID: [id number] Report ID: [id number]
[2017-08-13] MEDS: CALCIUM CARBONATE CHEW 500MG TAB PO SCH ×3 (11:45→17:01)
[2017-08-13] MEDS: FUROSEMIDE 20 MG/ 2ML VIAL IV SCH ×2 (11:45→17:02)
[2017-08-13] MEDS: HYDRALAZINE HCL 20 MG/ML VIAL IV PRN ×2 (14:16→17:01)
--- NOTE | 2017-08-13 14:51 | PN ---
Date of Progress Note: 08/12/2017 The patient is basically status quo. Has no recent improvement on his chest x-ray. This is probably a static condition for him. His responsiveness is still rather impaired. It is unlikely that the p atient will be taken care of at home and some attempt will be made to place him in the [facility] e nvironment at least temporarily, although arrangements have also been made for home dialysis. Sebastian szymanski talk to the involved parties tomorrow before making the disposition. HR/MODL Voice ID: [id number] Report ID: [id number]
[2017-08-13] MEDS: ATORVASTATIN 20 MG TAB PO SCH (20:35)
[2017-08-14] MEDS: METHYLPREDNISOLONE 40 MG INJ IV SCH ×3 (01:12→17:00)
[2017-08-14] MEDS: CARVEDILOL 3.125 MG TAB PO SCH (06:00)
[2017-08-14] MEDS: CALCIUM CARBONATE CHEW 500MG TAB PO SCH ×4 (08:00→17:00)
[2017-08-14] MEDS: SEVELAMER CARBONATE 800 MG TABLET PO SCH ×4 (08:00→17:00)
[2017-08-14] MEDS: CEFEPIME/SWI 1gm 1 GM/10 ML SYR IV SCH (09:00)
[2017-08-14] MEDS: ASPIRIN EC 81 MG TAB PO SCH (09:00)
[2017-08-14] MEDS: FUROSEMIDE 20 MG/ 2ML VIAL IV SCH ×2 (09:00→17:00)
[2017-08-14] MEDS: FAMOTIDINE 20 MG TAB PO SCH (09:00)
[2017-08-14] MEDS: CLOPIDOGREL 75 MG TABLET PO SCH (09:00)
[2017-08-14] MEDS: NITROGLYCERIN 0.4 MG/HR (10 MG) PATCH TD SCH (09:00)
[2017-08-14] MEDS: METOPROLOL TAR 50 MG TAB PO SCH (09:00)
[2017-08-14] MEDS: HYDRALAZINE HCL 25 MG TABLET PO SCH ×2 (09:00→14:54)
[2017-08-14 13:59] VITALS: O2SAT 95
[2017-08-14 15:58] VITALS: BP 159/58; TEMP 98.4
--- NOTE | 2017-08-14 21:37 | PN ---
Date of Progress Note: 08/13/2017 Basically, he is status quo. Family after much discussion decided on to 20-day senior living scenario where he can still get his dialysis and depending on how he does there and determine whether placeme nt at home would be appropriate or not. His mental status is unchanged. Marked confusion. His card iovascular seem stable. Should be transferred tomorrow after dialysis. HR/MODL Voice ID: [id number] Report ID: [id number]
--- NOTE | 2017-08-14 21:52 | PN ---
Date of Progress Note: 08/14/2017 The patient underwent his dialysis. If anything, his mental status has decreased somewhat. Physical status seems about the same. He has been accepted at halfway. We will continue his dialysis. Medication difference has been the addition of 40 of Lasix p.o. He has been getting a b.i.d. in the hospital and use of Ativan was decreased from 1 mg to 0.5 mg on a p.r.n. basis and the nitroglycerin was changed to p.r.n. basis as well. He will be transferred this afternoon. HR/MODL Voice ID: [id number] Report ID: [id number]
--- NOTE | 2017-08-15 06:20 | PN ---
Date of Progress Note: 08/14/2017 Subjective: The patient had been confused on the dialysis, agitated. We could not complete the dial ysis. Physical Examination: Vital Signs: When I saw the patient, blood pressure of 159/58, pulse of 65. Chest: Clear to auscultation. Heart: S1 and S2. Regular. Abdomen: Soft and nontender. Extremities: No edema. Laboratory Data: H and H .4. Sodium 131, potassium 5.2, bicarb 22, BUN 61, creatinine 5.9, gabe cium 9.6, and phosphorus 6.2. Medications: Current medications the patient is on include; 1.Atorvastatin. 2.Aspirin. 3.Pepcid. 4.Epogen. 5.Hydralazine. 6.Solu-Medrol. 7.Metoprolol. 8.Renvela. Assessment And Plan: 1.End-stage renal disease. Normal volume. We will continue the patient on dialysis Saturday, , and Saturday. 2.Secondary hyperparathyroidism. Continue binder. 3.Anemia of chronic kidney disease. Continue Epogen. 4.Failure to thrive. Continue supportive treatment. 5.Deconditioning. Continue PT and OT. The patient is going to be discharged to half-way. The patient is cleared from the renal standpoint for discharge planning. ERVIN Voice ID: [id number] Report ID: [id number]
--- NOTE | 2017-08-17 00:15 | PN ---
Date of Progress Note: 08/14/2017 Addendum: It should be noted that the patient has acute episode of left ventricular failure on top o f his chronic failure, which has been until this exacerbation in good control. He was therefore disc harged with diagnosis of acute exacerbation on top of chronic left-sided failure, progressive dementi a. HR/MODL Voice ID: [id number] Report ID: [id number]
--- NOTE | 2017-10-28 02:36 | DS ---
Date of Discharge: 08/14/2017 Hospital Course: The patient was admitted to the hospital on 08/08 after visiting the emergency room with marked shortness of breath at rest as well as with activity. He was admitted with a diagnosis of acute exacerbation of CHF. He has had a history of chronic CHF, given IV diuretic and clinically and symptomatically improved somewhat over the next few days. However, his activity level remained v geneva low compared to what had been in the past and was felt that the mental deterioration had increase d with this episode as well. He continued his dialysis during his hospital stay. He was given IV an tibiotics for what was felt to be acute bronchitis possibly exacerbating his COPD. In any event, it took a few days to get him stabilized. Once he was stabilized medically, his mental improvement only improved minimally. It was therefore felt after discussion with the family that he should be admitt ed to [facility] at least on a temporary basis. He was therefore transferred and discharged on . Final Diagnoses: Acute exacerbation of chronic congestive heart failure, dementia, progressive renal failure and dialysis, acute bronchitis, coronary artery disease by history, chronic obstructive pulm onary disease. HR/MODL Voice ID: [id number] Report ID: [id number]
== END 2017-08-14 17:07 | DRG 291 ==
LOC: ER 03:40 → ERHOLD 04:25 → 4TH 07:44
PROVIDERS: ADMIT Family Medicine; ATTEND Family Medicine
PROC: 5A1D70Z Performance of Urinary Filtration, Intermittent, Less than 6 Hours Per Day (ICD-10-PCS; 2017-08-08)
PROC: 5A1D70Z Performance of Urinary Filtration, Intermittent, Less than 6 Hours Per Day (ICD-10-PCS; 2017-08-09)
PROC: 5A1D70Z Performance of Urinary Filtration, Intermittent, Less than 6 Hours Per Day (ICD-10-PCS; 2017-08-12)
PROC: 5A1D70Z Performance of Urinary Filtration, Intermittent, Less than 6 Hours Per Day (ICD-10-PCS; principal; 2017-08-14)
DX: I13.2 Hypertensive heart and chronic kidney disease with heart failure and with stage 5 chronic kidney disease, or end stage renal disease (principal); N18.6 End stage renal disease; N25.81 Secondary hyperparathyroidism of renal origin; J20.9 Acute bronchitis, unspecified; I50.9 Heart failure, unspecified; R62.7 Adult failure to thrive
CPT/HCPCS: 36415; 71045; 71046; 80048; 80069; 80076; 82550; 82553; 83690; 83735; 83880; 84484; 85025; 85610; 85730; 87040; 90935; 93005; 93306; 94640; 97163; 99285; J0360; J0692; J1940; J2920; Q4081